=== PATIENT | male | born 1980 | race Caucasian/White ===

== ENCOUNTER 2019-03-03 11:16 | Inpatient (IN) | payer OTHER ==
[2019-03-03 11:34] VITALS: BMI 26.1
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
[2019-03-03] MEDS ORDERED: cloNIDine HCL 0.1 MG TABLET PO PRN (13:40)
[2019-03-03] MEDS ORDERED: BISMUTH SUBSALICYLATE 262 MG/15 ML BTL PO PRN (13:41)
[2019-03-03] MEDS ORDERED: MENTHOL/PHENOL 1 EACH UD MM PRN (13:41)
[2019-03-03] MEDS ORDERED: MAGNESIUM HYDROX 2400MG/30ML ORAL SUSPENSION 30 ML CUP PO PRN (13:41)
[2019-03-03] MEDS ORDERED: MAG HYDROX/AL HYDROX/SIMETH 30 ML UNIT-DOSE CUP PO PRN (13:41)
[2019-03-03] MEDS ORDERED: ACETAMINOPHEN 325 MG TABLET (FP) PO PRN ×2 (13:41)
--- NOTE | 2019-03-03 13:49 | PN ---
Teaching Attending Note Name of Resident: Iza Lara ATTENDING PHYSICIAN STATEMENT I saw and evaluated the patient. I reviewed the resident's note and discussed the case with the resident. I agree with the resident's findings and plan as documented. SUBJECTIVE: 39 yo with long h/o injection heroin use, now using 10 bags/day IV. Also using cocaine. Was in [facility]- given IM methadone for withdrawal Sx- and because of insurance reasons could not be admitted for detox and referred here. COWS score- 12 OBJECTIVE: Vital Signs - 24 hr 03/03/19 11:20 Temperature 97.2 F L Pulse Rate 64 Respiratory 18 Rate Blood Pressure 114/67 track don- not infected anxious alert and oriented ASSESSMENT AND PLAN: OUD- start methadone detox protocol clonidine and vistaril for anxiety
[2019-03-03] MEDS ORDERED: METHADONE HCL 10 MG TABLET (FOR DETOX USE ONLY) PO ONE (14:10)
[2019-03-03] MEDS: NICOTINE 14 MG/24 HOURS TOPICAL PATCH TD SCH (14:54)
[2019-03-03 16:42] LABS: ALBUMIN 3.7 g/dl (3.4-5.0); BILIRUBIN,TOTAL 0.3 mg/dL (0.2-1); CALCIUM 9.3 mg/dL (8.5-10.1); CREATININE 0.8 mg/dL (0.55-1.3); POTASSIUM 4.3 mmol/L (3.5-5.1); TOT PROT 7.5 g/dl (6.4-8.2)
[2019-03-03] MEDS: IBUPROFEN 400 MG TABLET (FP) PO PRN ×2 (16:50→22:06)
[2019-03-03] MEDS: hydrOXYzine PAMOATE 50 MG CAPSULE (FP) PO PRN ×2 (16:50→22:06)
[2019-03-03 16:56] LABS: HEMATOCRIT 40.1 % (35.4-49); HEMOGLOBIN 13.5 GM/dL (11.7-16.9); MCH 30.3 pg (25.7-33.7); MCHC 33.7 g/dl (32.0-35.9); MEAN PLT VOLUME 8.9 fl (7.5-11.1); PLATELET COUNT 316 K/MM3 (134-434); RBC 4.45 M/mm3 (4.00-5.60); RDW 13.3 % (11.9-15.9); WHITE BLOOD COUNT 5.3 K/mm3 (4.0-10.0)
[2019-03-03] MEDS: THIAMINE HCL 100 MG TABLET (FP) PO SCH (22:06)
[2019-03-03] MEDS: MELATONIN 5 MG TABLETS PO PRN (22:07)
[2019-03-04] MEDS ORDERED: METHADONE HCL 10 MG TABLET (FOR DETOX USE ONLY) ONE (08:47)
[2019-03-04] MEDS ORDERED: METHADONE HCL 5 MG TABLET (FOR DETOX USE ONLY) ONE (08:48)
[2019-03-04] MEDS ORDERED: METHADONE (DETOX) 20 MG, METHADONE (DETOX) 5 MG PO ONE (10:00)
--- NOTE | 2019-03-04 10:01 | PN ---
S COWS - Scale Resting Pulse: 0= [place] 80 or Below Sweatin= Chills/Flushing Restless Observation: 0= Sits Still Pupil Size: 1= Pupils >than Normal Bone or Joint Aches: 1= Mild Discomfort Runny Nose/ Eye Tearin= None GI Upset > 30mins: 0= None Tremor Observation of Outstretched Hands: 2= Slight Tremor Visible Yawning Observation: 1= 1-2x During Session Anxiety or Irritability: 2=Irritable/Anxious Goose Flesh Skin: 3=Piloerection COWS Score: 11 S Progress Note (SOAP) Subjective: 39 years old male admitted on 03/03/19 for acute opiate withdrawal sx management had methadone today feeling better discuss medication assisted treatment program Objective: 03/04/19 10:01 Vital Signs Temperature 96.4 F L 03/04/19 09:22 Pulse Rate 64 03/04/19 09:22 Respiratory Rate 18 03/04/19 09:22 Blood Pressure 120/70 03/04/19 09:22 O2 Sat by Pulse Oximetry (%) Laboratory Last Values WBC 5.3 K/mm3 (4.0-10.0) 03/03/19 13:45 RBC 4.45 M/mm3 (4.00-5.60) 03/03/19 13:45 Hgb 13.5 GM/dL (11.7-16.9) 03/03/19 13:45 Hct 40.1 % (35.4-49) 03/03/19 13:45 MCV 90.0 fl (80-96) 03/03/19 13:45 MCH 30.3 pg (25.7-33.7) 03/03/19 13:45 MCHC 33.7 g/dl (32.0-35.9) 03/03/19 13:45 RDW 13.3 % (11.9-15.9) 03/03/19 13:45 Plt Count 316 K/MM3 (134-434) 03/03/19 13:45 MPV 8.9 fl (7.5-11.1) 03/03/19 13:45 Sodium 140 mmol/L (136-145) 03/03/19 13:45 Potassium 4.3 mmol/L (3.5-5.1) 03/03/19 13:45 Chloride 106 mmol/L (98-107) 03/03/19 13:45 Carbon Dioxide 27 mmol/L (21-32) 03/03/19 13:45 Anion Gap 8 MMOL/L (8-16) 03/03/19 13:45 BUN 13.0 mg/dL (7-18) 03/03/19 13:45 Creatinine 0.8 mg/dL (0.55-1.3) 03/03/19 13:45 Est GFR (CKD-EPI)AfAm 131.34 03/03/19 13:45 Est GFR (CKD-EPI)NonAf 113.32 03/03/19 13:45 Random Glucose 114 mg/dL (74-106) H 03/03/19 13:45 Calcium 9.3 mg/dL (8.5-10.1) 03/03/19 13:45 Total Bilirubin 0.3 mg/dL (0.2-1) 03/03/19 13:45 AST 13 U/L (15-37) L 03/03/19 13:45 ALT 17 U/L (13-61) 03/03/19 13:45 Alkaline Phosphatase 78 U/L (45-117) 03/03/19 13:45 Total Protein 7.5 g/dl (6.4-8.2) 03/03/19 13:45 Albumin 3.7 g/dl (3.4-5.0) 03/03/19 13:45 lab noted Assessment: 03/04/19 10:01 opiate withdrawal sx Plan: continue opiate detox
[2019-03-04] MEDS: NICOTINE 14 MG/24 HOURS TOPICAL PATCH TD SCH (10:44)
[2019-03-04] MEDS: PRENATAL VITAMINS W/ FOLIC ACID TABLET (FP) PO SCH (10:46)
[2019-03-04] MEDS: METHOCARBAMOL 500 MG TABLET PO PRN (13:16)
[2019-03-04] MEDS: hydrOXYzine PAMOATE 50 MG CAPSULE (FP) PO PRN (22:08)
[2019-03-04] MEDS: THIAMINE HCL 100 MG TABLET (FP) PO SCH (22:08)
[2019-03-04] MEDS: MELATONIN 5 MG TABLETS PO PRN (22:09)
[2019-03-04] MEDS: IBUPROFEN 400 MG TABLET (FP) PO PRN (22:09)
[2019-03-05] MEDS: hydrOXYzine PAMOATE 50 MG CAPSULE (FP) PO PRN (05:11)
[2019-03-05] MEDS: METHOCARBAMOL 500 MG TABLET PO PRN (05:11)
--- NOTE | 2019-03-05 09:27 | PN ---
BHS COWS - Scale Resting Pulse: 0= [place] 80 or Below Sweatin= Chills/Flushing Restless Observation: 0= Sits Still Pupil Size: 1= Pupils >than Normal Bone or Joint Aches: 1= Mild Discomfort Runny Nose/ Eye Tearin= Nasal Congestion GI Upset > 30mins: 1= Stomach Cramp Tremor Observation of Outstretched Hands: 1= Tremor [place], Not Seen Yawning Observation: 1= 1-2x During Session Anxiety or Irritability: 1=Feels Anxious/Irritable Goose Flesh Skin: 0=Smooth Skin COWS Score: 8 BHS Progress Note (SOAP) Subjective: 39 years old male doing well with methadone detox regimen ambulating on hallway social with peers good personal hygiene Objective: 03/05/19 09:26 Vital Signs Temperature 97 F L 03/05/19 06:06 Pulse Rate 55 L 03/05/19 06:06 Respiratory Rate 18 03/05/19 06:22 Blood Pressure 110/50 L 03/05/19 06:06 O2 Sat by Pulse Oximetry (%) Laboratory Last Values WBC 5.3 K/mm3 (4.0-10.0) 03/03/19 13:45 RBC 4.45 M/mm3 (4.00-5.60) 03/03/19 13:45 Hgb 13.5 GM/dL (11.7-16.9) 03/03/19 13:45 Hct 40.1 % (35.4-49) 03/03/19 13:45 MCV 90.0 fl (80-96) 03/03/19 13:45 MCH 30.3 pg (25.7-33.7) 03/03/19 13:45 MCHC 33.7 g/dl (32.0-35.9) 03/03/19 13:45 RDW 13.3 % (11.9-15.9) 03/03/19 13:45 Plt Count 316 K/MM3 (134-434) 03/03/19 13:45 MPV 8.9 fl (7.5-11.1) 03/03/19 13:45 Sodium 140 mmol/L (136-145) 03/03/19 13:45 Potassium 4.3 mmol/L (3.5-5.1) 03/03/19 13:45 Chloride 106 mmol/L (98-107) 03/03/19 13:45 Carbon Dioxide 27 mmol/L (21-32) 03/03/19 13:45 Anion Gap 8 MMOL/L (8-16) 03/03/19 13:45 BUN 13.0 mg/dL (7-18) 03/03/19 13:45 Creatinine 0.8 mg/dL (0.55-1.3) 03/03/19 13:45 Est GFR (CKD-EPI)AfAm 131.34 03/03/19 13:45 Est GFR (CKD-EPI)NonAf 113.32 03/03/19 13:45 Random Glucose 114 mg/dL (74-106) H 03/03/19 13:45 Calcium 9.3 mg/dL (8.5-10.1) 03/03/19 13:45 Total Bilirubin 0.3 mg/dL (0.2-1) 03/03/19 13:45 AST 13 U/L (15-37) L 03/03/19 13:45 ALT 17 U/L (13-61) 03/03/19 13:45 Alkaline Phosphatase 78 U/L (45-117) 03/03/19 13:45 Total Protein 7.5 g/dl (6.4-8.2) 03/03/19 13:45 Albumin 3.7 g/dl (3.4-5.0) 03/03/19 13:45 lab noted Assessment: 03/05/19 09:26 opiate withdrawal sx Plan: continue opiate detox discuss medication assisted treatment program
[2019-03-05] MEDS ORDERED: METHADONE HCL 10 MG TABLET (FOR DETOX USE ONLY) PO ONE (10:00)
[2019-03-05] MEDS: NICOTINE 14 MG/24 HOURS TOPICAL PATCH TD SCH (10:25)
[2019-03-05] MEDS: PRENATAL VITAMINS W/ FOLIC ACID TABLET (FP) PO SCH (10:25)
[2019-03-05 13:27] VITALS: BP 118/70; PULSE 65; TEMP 98.2
--- NOTE | 2019-03-05 15:28 | DS ---
[facility] Detox Discharge Summary Admission Date: 03/03/19 Discharge Date: 03/05/19 - History Present History: Opioid Dependence Additional Comments: 39 years old male admitted on 03/03/19 for opiate withdrawal sx management insists to leave the detox report feeling better after lunch and nap alert oriented x 3 denies dizziness no shortness of breath speech clearly steady gait strong recommend the patient seeking medication assisted treatment program Pertinent Past History: patient is willing to consider return to [facility] - Physical Exam Results Vital Signs: Vital Signs Temperature 98.2 F 03/05/19 13:26 Pulse Rate 65 03/05/19 13:26 Respiratory Rate 18 03/05/19 13:26 Blood Pressure 118/70 03/05/19 13:26 O2 Sat by Pulse Oximetry (%) Pertinent Admission Physical Exam Findings: opiate withdrawal sx Laboratory Last Values WBC 5.3 K/mm3 (4.0-10.0) 03/03/19 13:45 RBC 4.45 M/mm3 (4.00-5.60) 03/03/19 13:45 Hgb 13.5 GM/dL (11.7-16.9) 03/03/19 13:45 Hct 40.1 % (35.4-49) 03/03/19 13:45 MCV 90.0 fl (80-96) 03/03/19 13:45 MCH 30.3 pg (25.7-33.7) 03/03/19 13:45 MCHC 33.7 g/dl (32.0-35.9) 03/03/19 13:45 RDW 13.3 % (11.9-15.9) 03/03/19 13:45 Plt Count 316 K/MM3 (134-434) 03/03/19 13:45 MPV 8.9 fl (7.5-11.1) 03/03/19 13:45 Sodium 140 mmol/L (136-145) 03/03/19 13:45 Potassium 4.3 mmol/L (3.5-5.1) 03/03/19 13:45 Chloride 106 mmol/L (98-107) 03/03/19 13:45 Carbon Dioxide 27 mmol/L (21-32) 03/03/19 13:45 Anion Gap 8 MMOL/L (8-16) 03/03/19 13:45 BUN 13.0 mg/dL (7-18) 03/03/19 13:45 Creatinine 0.8 mg/dL (0.55-1.3) 03/03/19 13:45 Est GFR (CKD-EPI)AfAm 131.34 03/03/19 13:45 Est GFR (CKD-EPI)NonAf 113.32 03/03/19 13:45 Random Glucose 114 mg/dL (74-106) H 03/03/19 13:45 Calcium 9.3 mg/dL (8.5-10.1) 03/03/19 13:45 Total Bilirubin 0.3 mg/dL (0.2-1) 03/03/19 13:45 AST 13 U/L (15-37) L 03/03/19 13:45 ALT 17 U/L (13-61) 03/03/19 13:45 Alkaline Phosphatase 78 U/L (45-117) 03/03/19 13:45 Total Protein 7.5 g/dl (6.4-8.2) 03/03/19 13:45 Albumin 3.7 g/dl (3.4-5.0) 03/03/19 13:45 RPR Titer Nonreactive (NONREACTIVE) 03/04/19 10:00 lab noted - Treatment Hospital Course: Detox Protocol Followed, Responded well Patient has Accepted a Rehab Referral to: [facility] - Medication Discharge Medications: Ambulatory Orders NK [No Known Home Medication] 03/03/19 - Diagnosis (1) Opioid dependence with withdrawal Current Visit: Yes Status: Acute (2) Nicotine use disorder Current Visit: Yes Status: Acute - AMA Did Patient Leave Against Medical Advice: Yes
[2019-03-06] MEDS ORDERED: METHADONE (DETOX) 10 MG, METHADONE (DETOX) 5 MG PO ONE (10:00)
[2019-03-07] MEDS ORDERED: METHADONE HCL 10 MG TABLET (FOR DETOX USE ONLY) PO ONE (10:00)
[2019-03-08] MEDS ORDERED: METHADONE HCL 5 MG TABLET (FOR DETOX USE ONLY) PO ONE (06:00)
== END 2019-03-05 15:08 | disposition left against medical advice (07) | DRG 770 ==
LOC: YASAS 11:16 → Y3N 14:03
PROVIDERS: ADMIT Surgery; ATTEND Surgery
PROC: HZ2ZZZZ Detoxification Services for Substance Abuse Treatment (ICD-10-PCS; principal; 2019-03-03)
DX: F11.23 Opioid dependence with withdrawal (principal); F14.20 Cocaine dependence, uncomplicated; F17.200 Nicotine dependence, unspecified, uncomplicated; F41.9 Anxiety disorder, unspecified; Z87.828 Personal history of other (healed) physical injury and trauma; Z59.0 Homelessness
CPT/HCPCS: 36415; 80053; 85027; 86480; 86593; J0735

== ENCOUNTER 2019-06-14 08:31 | Inpatient (IN) | payer OTHER ==
[2019-06-14 09:11] VITALS: BMI 30.2
--- NOTE | 2019-06-14 11:15 | HP ---
COWS - Scale Resting Pulse: 0= [place] 80 or Below Sweatin= Chills/Flushing Restless Observation: 1= Difficult to Sit Still Pupil Size: 1= Pupils >than Normal Bone or Joint Aches: 2= Severe Diffuse Aches Runny Nose/ Eye Tearin= Runny Nose/Eyes GI Upset > 30mins: 2= Nausea/Diarrhea Tremor Observation: 1= Tremor [place], Not Seen Yawning Observation: 1= 1-2x During Session Anxiety or Irritability: 2=Irritable/Anxious Goose Flesh Skin: 0=Smooth Skin COWS Score: 13 CIWA Score - Admission Criteria OASAS Guidelines: Admission for Medically Managed Detox: Requires at least one of the followin. CIWA greater than 12 2. Seizures within the past 24 hours 3. Delirium tremens within the past 24 hours 4. Hallucinations within the past 24 hours 5. Acute intervention needed for co occurring medical disorder 6. Acute intervention needed for co occurring psychiatric disorder 7. Severe withdrawal that cannot be handled at a lower level of care (continued vomiting, continued diarrhea, abnormal vital signs) requiring intravenous medication and/or fluids 8. Admitting History and Physical - Smoking History Smoking history: Current every day smoker Have you smoked in the past 12 months: Yes Aproximately how many cigarettes per day: 10 - Alcohol/Substance Use Hx Alcohol Use: No Admission ROS S - HPI Chief Complaint: I need help to stop using heroin,cocaine,methadone,alcohol abused Allergies/Adverse Reactions: Allergies Allergy/AdvReac Type Severity Reaction Status Date / Time Penicillins Allergy Mild Verified 06/14/19 09:08 History of Present Illness: this 31 years old male with heroin,cocaine,street methadone,alcohol abused, seeking detox,withdrawal symptom, denied seizure syncope iv heroin and cocaine nicotine dependence 1/2 pack/day multiple admissions in detox,last detox 03/03/19 to 03/05/19 longest period of sobriety 5 years 2003 to 2009 unemployed homeless plan for rehab after detox Exam Limitations: No Limitations - Ebola screening Have you traveled outside of the country in the last 21 days: No ([place]) Have you had contact with anyone from an Ebola affected area: No Do you have a fever: No - Review of Systems EENT: reports: Cataracts, Tearing, Nose Congestion Respiratory: reports: No Symptoms reported Cardiac: reports: No Symptoms Reported GI: reports: Diarrhea, Nausea, Vomiting : reports: No Symptoms Reported Musculoskeletal: reports: Back Pain, Joint Pain, Muscle Pain Integumentary: reports: Dryness Neuro: reports: Headache, Tremors Endocrine: reports: No Symptoms Reported Hematology: reports: No Symptoms Reported Psychiatric: reports: No Sypmtoms Reported, Judgement Intact, Mood/Affect Appropiate, Orientated x3 Other Systems: Reviewed and Negative Patient History - Patient Medical History Hx Anemia: No Hx Asthma: No Hx Chronic Obstructive Pulmonary Disease (COPD): No Hx Cancer: No Hx Cardiac Disorders: No Hx Congestive Heart Failure: No Hx Hypertension: No Hx Hypercholesterolemia: No Hx Pacemaker: No HX Cerebrovascular Accident: No Hx Seizures: No Hx Dementia: No Hx Diabetes: No Hx Gastrointestinal Disorders: No Hx Liver Disease: No Hx Genitourinary Disorders: No Hx Sexually Transmitted Disorders: No Hx Renal Disease (ESRD): No Hx Thyroid Disease: No Hx Human Immunodeficiency Virus (HIV): No (last 12/21 negative) Hx Hepatitis C: No Hx Depression: Yes (no med) Hx Suicide Attempt: No Hx Bipolar Disorder: No Hx Schizophrenia: No Other Medical History: no suicidal,no homicidal,carpal tunnel and arthritis both hands,shoulder - Patient Surgical History Past Surgical History: No Hx Neurologic Surgery: No Hx Cataract Extraction: No Hx Cardiac Surgery: No Hx Lung Surgery: No Hx Breast Surgery: No Hx Breast Biopsy: No Hx Abdominal Surgery: No Hx Appendectomy: No Hx Cholecystectomy: No Hx Genitourinary Surgery: No Hx Section: No Hx Orthopedic Surgery: Yes (arthroscopic surgery of right elbow) Anesthesia Reaction: No - PPD History Documented Results: Negative w/o proof Implanted On Prior [facility] Admission?: No PPD to be Administered?: Yes - Smoking Cessation Smoking history: Current every day smoker Have you smoked in the past 12 months: Yes Aproximately how many cigarettes per day: 10 Hx Chewing Tobacco Use: No Initiated information on smoking cessation: Yes 'Breaking Loose' booklet given: 06/14/19 - Substance & Tx. History Hx Alcohol Use: No Hx Substance Use: Yes Substance Use Type: Cocaine, Heroin Hx Substance Use Treatment: Yes ([facility] 03/03/19 to 03/05/19) - Substances abused Heroin Substance route: Injection Frequency: Daily Amount used: 5 bags Age of first use: 32 Date of last use: 11/08/19 Cocaine Substance route: Injection Frequency: Daily Amount used: 8 bags Age of first use: 32 Date of last use: 06/13/19 Non-Rx Methadone Substance route: Oral Frequency: Daily Amount used: 40 mgs Age of first use: 32 Date of last use: 06/13/19 Alcohol Substance route: Oral Frequency: 1-3 times last 30 days Amount used: 1 pint of liquor/6 of 12 ozs of beer Age of first use: 16 Date of last use: 05/08/19 Admission Physical Exam [facility] - Vital Signs Vital Signs: Vital Signs - 24 hr 06/14/19 06/14/19 09:02 09:17 Temperature 98.5 F 98.5 F Pulse Rate 69 69 Respiratory 18 18 Rate Blood Pressure 122/62 122/62 - Physical General Appearance: Yes: Moderate Distress, Tremorous, Irritable, Sweating, Anxious HEENTM: Yes: Normal ENT Inspection, [place], Pharynx Normal Respiratory: Yes: Lungs Clear, Normal Breath Sounds, No Respiratory Distress Neck: Yes: Within Normal Limits, Supple, Trachea in good position Breast: Yes: Within Normal Limits Cardiology: Yes: Within Normal Limits, Regular Rhythm, Regular Rate, S1, S2 Abdominal: Yes: Normal Bowel Sounds, Non Tender, Flat, Soft Genitourinary: Yes: Within Normal Limits Back: Yes: Muscle Spasm Musculoskeletal: Yes: Back pain, Muscle Pain Extremities: Yes: Within Normal Limits Neurological: Yes: brim edge trimmer II-XII NML intact, Motor Strength 5/5 Integumentary: Yes: Dry, Track Hooks Lymphatic: Yes: Within Normal Limits - Diagnostic (1) Opioid dependence with withdrawal Current Visit: No Status: Acute (2) Nicotine use disorder Current Visit: No Status: Acute (3) Cocaine use disorder Current Visit: No Status: Chronic (4) IVDU (intravenous drug user) Current Visit: No Status: Chronic Cleared for Admission [facility] - Detox or Rehab [facility] Level of Care: Medically Managed Detox Regimen/Protocol: Methadone Breathalyzer - Breathalyzer Breathalyzer: 0 Urine Drug Screen - Test Device Lot number: [id number] Expiration date: 03/04/21 - Control Is test valid?: Yes - Results Drug screen NEGATIVE: No Urine drug screen results: LAVERN-Cocaine, MTD-Methadone Inpatient Rehab Admission - Rehab Decision to Admit Inpatient rehab admission?: No
[2019-06-14] MEDS ORDERED: BISMUTH SUBSALICYLATE 524 MG/30 ML UD PO PRN (11:32)
[2019-06-14] MEDS ORDERED: METHADONE HCL 10 MG TABLET (FOR DETOX USE ONLY) PO ONE (11:32)
[2019-06-14] MEDS ORDERED: MAGNESIUM HYDROX 2400MG/30ML ORAL SUSPENSION 30 ML CUP PO PRN (11:32)
[2019-06-14] MEDS ORDERED: cloNIDine HCL 0.1 MG TABLET PO PRN (11:32)
[2019-06-14] MEDS ORDERED: MENTHOL/PHENOL 1 EACH UD MM PRN (11:32)
[2019-06-14] MEDS ORDERED: MAG HYDROX/AL HYDROX/SIMETH 30 ML UNIT-DOSE CUP PO PRN (11:32)
[2019-06-14] MEDS ORDERED: MAGNESIUM CITRATE 300 ML BOTTLE PO PRN (11:32)
[2019-06-14] MEDS ORDERED: NICOTINE POLACRILEX 2 MG GUM BUC PRN (11:32)
[2019-06-14] MEDS: NICOTINE 21 MG/24 HOURS TOPICAL PATCH TD SCH (13:27)
[2019-06-14] MEDS: THIAMINE HCL 100 MG TABLET (FP) PO SCH (22:19)
[2019-06-14] MEDS: diazePAM 5 MG TABLET PO PRN (22:19)
[2019-06-14] MEDS: MELATONIN 5 MG TABLETS PO PRN (22:19)
[2019-06-15] MEDS: hydrOXYzine PAMOATE 25 MG CAPSULE (FP) PO PRN (03:00)
[2019-06-15] MEDS ORDERED: METHADONE HCL 10 MG TABLET (FOR DETOX USE ONLY) ONE (09:35)
[2019-06-15] MEDS ORDERED: METHADONE HCL 5 MG TABLET (FOR DETOX USE ONLY) ONE (09:36)
[2019-06-15 09:39] LABS: HEMATOCRIT 38.2 % (35.4-49); HEMOGLOBIN 12.8 GM/dL (11.7-16.9); MCH 29.7 pg (25.7-33.7); MCHC 33.5 g/dl (32.0-35.9); MEAN CELL VOLUME 88.5 fl (80-96); MEAN PLT VOLUME 8.8 fl (7.5-11.1); PLATELET COUNT 197 K/MM3 (134-434); RBC 4.32 M/mm3 (4.00-5.60); WHITE BLOOD COUNT 4.3 K/mm3 (4.0-10.0)
[2019-06-15 09:55] LABS: ALBUMIN 3.5 g/dl (3.4-5.0); BILIRUBIN,TOTAL 0.4 mg/dL (0.2-1); BLOOD UREA NITROGEN 16.1 mg/dL (7-18); CREATININE 0.8 mg/dL (0.55-1.3); POTASSIUM 4.1 mmol/L (3.5-5.1); TOT PROT 6.1 g/dl (6.4-8.2)
[2019-06-15] MEDS ORDERED: METHADONE (DETOX) 20 MG, METHADONE (DETOX) 5 MG PO ONE (10:00)
--- NOTE | 2019-06-15 10:15 | PN ---
BHS COWS - Scale Resting Pulse: 0= [place] 80 or Below Sweatin= Chills/Flushing Restless Observation: 0= Sits Still Pupil Size: 1= Pupils >than Normal Bone or Joint Aches: 2= Severe Diffuse Aches Runny Nose/ Eye Tearin= Nasal Congestion GI Upset > 30mins: 1= Stomach Cramp Tremor Observation of Outstretched Hands: 2= Slight Tremor Visible Yawning Observation: 1= 1-2x During Session Anxiety or Irritability: 0= None Goose Flesh Skin: 3=Piloerection COWS Score: 12 BHS Progress Note (SOAP) Subjective: 39 years old male admitted on 06/14/19 for opiate withdrawal sx management treated with methadone detox regimen patient tolerated well sitting on bed eating breakfast patient tolerated food and fluid well Objective: 06/15/19 10:15 Vital Signs Temperature 97.9 F 06/15/19 09:22 Pulse Rate 71 06/15/19 09:22 Respiratory Rate 18 06/15/19 09:22 Blood Pressure 110/67 06/15/19 09:22 O2 Sat by Pulse Oximetry (%) Laboratory Last Values WBC 4.3 K/mm3 (4.0-10.0) 06/15/19 07:50 RBC 4.32 M/mm3 (4.00-5.60) 06/15/19 07:50 Hgb 12.8 GM/dL (11.7-16.9) 06/15/19 07:50 Hct 38.2 % (35.4-49) 06/15/19 07:50 MCV 88.5 fl (80-96) 06/15/19 07:50 MCH 29.7 pg (25.7-33.7) 06/15/19 07:50 MCHC 33.5 g/dl (32.0-35.9) 06/15/19 07:50 RDW 14.0 % (11.9-15.9) 06/15/19 07:50 Plt Count 197 K/MM3 (134-434) D 06/15/19 07:50 MPV 8.8 fl (7.5-11.1) 06/15/19 07:50 Sodium 137 mmol/L (136-145) 06/15/19 07:50 Potassium 4.1 mmol/L (3.5-5.1) 06/15/19 07:50 Chloride 101 mmol/L (98-107) 06/15/19 07:50 Carbon Dioxide 32 mmol/L (21-32) 06/15/19 07:50 Anion Gap 5 MMOL/L (8-16) L 06/15/19 07:50 BUN 16.1 mg/dL (7-18) 06/15/19 07:50 Creatinine 0.8 mg/dL (0.55-1.3) 06/15/19 07:50 Est GFR (CKD-EPI)AfAm 131.34 06/15/19 07:50 Est GFR (CKD-EPI)NonAf 113.32 06/15/19 07:50 Random Glucose 95 mg/dL (74-106) 06/15/19 07:50 Calcium 9.0 mg/dL (8.5-10.1) 06/15/19 07:50 Total Bilirubin 0.4 mg/dL (0.2-1) 06/15/19 07:50 AST 23 U/L (15-37) 06/15/19 07:50 ALT 27 U/L (13-61) 06/15/19 07:50 Alkaline Phosphatase 49 U/L (45-117) 06/15/19 07:50 Total Protein 6.1 g/dl (6.4-8.2) L 06/15/19 07:50 Albumin 3.5 g/dl (3.4-5.0) 06/15/19 07:50 lab noted Assessment: 06/15/19 10:15 opiate withdrawal sx Plan: continue methadone detox regimen
[2019-06-15] MEDS: PRENATAL VITAMINS W/ FOLIC ACID TABLET (FP) PO SCH (10:55)
[2019-06-15] MEDS: NICOTINE 21 MG/24 HOURS TOPICAL PATCH TD SCH (10:56)
[2019-06-15 13:41] LABS: URINE APPEARANCE CLEAR; URINE BILIRUBIN NEGATIVE (NEGATIVE); URINE COLOR YELLOW; URINE GLUCOSE (UA) NEGATIVE (NEGATIVE); URINE KETONE NEGATIVE (NEGATIVE); URINE LEUK ESTERASE NEGATIVE (NEGATIVE); URINE NITRITE NEGATIVE (NEGATIVE); URINE PROTEIN NEGATIVE (NEGATIVE); URINE UROBILINOGEN 0.2 mg/dL (0.2-1.0)
[2019-06-15] MEDS: THIAMINE HCL 100 MG TABLET (FP) PO SCH (22:16)
[2019-06-15] MEDS: diazePAM 5 MG TABLET PO PRN (22:16)
[2019-06-16] MEDS: diazePAM 5 MG TABLET PO PRN ×2 (02:24→10:18)
[2019-06-16] MEDS: hydrOXYzine PAMOATE 25 MG CAPSULE (FP) PO PRN (02:24)
[2019-06-16] MEDS: METHOCARBAMOL 500 MG TABLET PO PRN (05:54)
[2019-06-16] MEDS: ACETAMINOPHEN 325 MG TABLET (FP) PO PRN ×2 (05:55→15:45)
[2019-06-16] MEDS ORDERED: METHADONE HCL 10 MG TABLET (FOR DETOX USE ONLY) PO ONE (10:00)
[2019-06-16] MEDS: NICOTINE 21 MG/24 HOURS TOPICAL PATCH TD SCH (10:18)
[2019-06-16] MEDS: PRENATAL VITAMINS W/ FOLIC ACID TABLET (FP) PO SCH (10:18)
--- NOTE | 2019-06-16 14:04 | PN ---
BHS COWS - Scale Resting Pulse: 0= [place] 80 or Below Sweatin= Chills/Flushing Restless Observation: 0= Sits Still Pupil Size: 1= Pupils >than Normal Bone or Joint Aches: 2= Severe Diffuse Aches Runny Nose/ Eye Tearin= Nasal Congestion GI Upset > 30mins: 1= Stomach Cramp Tremor Observation of Outstretched Hands: 2= Slight Tremor Visible Yawning Observation: 1= 1-2x During Session Anxiety or Irritability: 2=Irritable/Anxious Goose Flesh Skin: 0=Smooth Skin COWS Score: 11 BHS Progress Note (SOAP) Subjective: 39 years old male admitted on 06/14/19 for opiate withdrawal sx management treated with methadone detox regimen feeling better sleep through out the night less tremor mild body ache Objective: 06/16/19 14:02 Laboratory Last Values WBC 4.3 K/mm3 (4.0-10.0) 06/15/19 07:50 RBC 4.32 M/mm3 (4.00-5.60) 06/15/19 07:50 Hgb 12.8 GM/dL (11.7-16.9) 06/15/19 07:50 Hct 38.2 % (35.4-49) 06/15/19 07:50 MCV 88.5 fl (80-96) 06/15/19 07:50 MCH 29.7 pg (25.7-33.7) 06/15/19 07:50 MCHC 33.5 g/dl (32.0-35.9) 06/15/19 07:50 RDW 14.0 % (11.9-15.9) 06/15/19 07:50 Plt Count 197 K/MM3 (134-434) D 06/15/19 07:50 MPV 8.8 fl (7.5-11.1) 06/15/19 07:50 Sodium 137 mmol/L (136-145) 06/15/19 07:50 Potassium 4.1 mmol/L (3.5-5.1) 06/15/19 07:50 Chloride 101 mmol/L (98-107) 06/15/19 07:50 Carbon Dioxide 32 mmol/L (21-32) 06/15/19 07:50 Anion Gap 5 MMOL/L (8-16) L 06/15/19 07:50 BUN 16.1 mg/dL (7-18) 06/15/19 07:50 Creatinine 0.8 mg/dL (0.55-1.3) 06/15/19 07:50 Est GFR (CKD-EPI)AfAm 131.34 06/15/19 07:50 Est GFR (CKD-EPI)NonAf 113.32 06/15/19 07:50 Random Glucose 95 mg/dL (74-106) 06/15/19 07:50 Calcium 9.0 mg/dL (8.5-10.1) 06/15/19 07:50 Total Bilirubin 0.4 mg/dL (0.2-1) 06/15/19 07:50 AST 23 U/L (15-37) 06/15/19 07:50 ALT 27 U/L (13-61) 06/15/19 07:50 Alkaline Phosphatase 49 U/L (45-117) 06/15/19 07:50 Total Protein 6.1 g/dl (6.4-8.2) L 06/15/19 07:50 Albumin 3.5 g/dl (3.4-5.0) 06/15/19 07:50 Urine Color Yellow 06/15/19 08:40 Urine Appearance Clear 06/15/19 08:40 Urine pH 5.0 (5.0-8.0) 06/15/19 08:40 Ur Specific [place] 1.018 (1.010-1.035) 06/15/19 08:40 Urine Protein Negative (NEGATIVE) 06/15/19 08:40 Urine Glucose (UA) Negative (NEGATIVE) 06/15/19 08:40 Urine Ketones Negative (NEGATIVE) 06/15/19 08:40 Urine Blood Negative (NEGATIVE) 06/15/19 08:40 Urine Nitrite Negative (NEGATIVE) 06/15/19 08:40 Urine Bilirubin Negative (NEGATIVE) 06/15/19 08:40 Urine Urobilinogen 0.2 mg/dL (0.2-1.0) 06/15/19 08:40 Ur Leukocyte Esterase Negative (NEGATIVE) 06/15/19 08:40 RPR Titer Nonreactive (NONREACTIVE) 06/15/19 07:50 lab noted Assessment: 06/16/19 14:03 opioid withdrawal sx Plan: continue methadone detox regimen
--- NOTE | 2019-06-16 16:03 | PN ---
[facility] Progress Note Note: 39 years old male developed fever on and off since admission on 06/14/19 for opiate withdrawal sx management while treating with methadone patient became disorganized with disoriented slurred speech painful urination fluctuating levels of consciousness and fever 102.6 1:1 close observation information provided to ER Dr. Hinds rule out encephalopathy unknown origin disposition: may return to [facility] continue detox or opiate rehab admission
[2019-06-16] MEDS: THIAMINE HCL 100 MG TABLET (FP) PO SCH (22:37)
[2019-06-16] MEDS: IBUPROFEN 400 MG TABLET (FP) PO PRN (23:08)
[2019-06-16] MEDS: MELATONIN 5 MG TABLETS PO PRN (23:09)
[2019-06-17] MEDS: diazePAM 5 MG TABLET PO PRN (00:38)
[2019-06-17] MEDS ORDERED: METHADONE HCL 10 MG TABLET (FOR DETOX USE ONLY) ONE (09:25)
[2019-06-17] MEDS ORDERED: METHADONE HCL 5 MG TABLET (FOR DETOX USE ONLY) ONE (09:26)
[2019-06-17] MEDS ORDERED: METHADONE (DETOX) 10 MG, METHADONE (DETOX) 5 MG PO ONE (10:00)
[2019-06-17] MEDS ORDERED: diazePAM 5 MG TABLET PO PRN (10:37)
--- NOTE | 2019-06-17 10:37 | PN ---
BHS COWS - Scale Resting Pulse: 1= [place] 81-100 Sweatin= Chills/Flushing Restless Observation: 0= Sits Still Pupil Size: 0= Normal to Room Light Bone or Joint Aches: 1= Mild Discomfort Runny Nose/ Eye Tearin= Nasal Congestion GI Upset > 30mins: 1= Stomach Cramp Tremor Observation of Outstretched Hands: 1= Tremor [place], Not Seen Yawning Observation: 1= 1-2x During Session Anxiety or Irritability: 1=Feels Anxious/Irritable Goose Flesh Skin: 0=Smooth Skin COWS Score: 8 BHS Progress Note (SOAP) Subjective: 39 years old male admitted on 06/14/19 for opiate withdrawal sx management treated with methadone detox regimen discuss medication assisted treatment program reduce valium prn from 10 mg to 5 mg discuss alter mentation due to overdose that the patient became alert after narcan patient agrees to lease picker narcan from pharmacy Objective: 06/17/19 10:41 Vital Signs Temperature 97.4 F L 06/17/19 09:18 Pulse Rate 81 06/17/19 09:18 Respiratory Rate 18 06/17/19 09:18 Blood Pressure 130/76 06/17/19 09:18 O2 Sat by Pulse Oximetry (%) Laboratory Last Values WBC 4.3 K/mm3 (4.0-10.0) 06/15/19 07:50 RBC 4.32 M/mm3 (4.00-5.60) 06/15/19 07:50 Hgb 12.8 GM/dL (11.7-16.9) 06/15/19 07:50 Hct 38.2 % (35.4-49) 06/15/19 07:50 MCV 88.5 fl (80-96) 06/15/19 07:50 MCH 29.7 pg (25.7-33.7) 06/15/19 07:50 MCHC 33.5 g/dl (32.0-35.9) 06/15/19 07:50 RDW 14.0 % (11.9-15.9) 06/15/19 07:50 Plt Count 197 K/MM3 (134-434) D 06/15/19 07:50 MPV 8.8 fl (7.5-11.1) 06/15/19 07:50 Sodium 137 mmol/L (136-145) 06/15/19 07:50 Potassium 4.1 mmol/L (3.5-5.1) 06/15/19 07:50 Chloride 101 mmol/L (98-107) 06/15/19 07:50 Carbon Dioxide 32 mmol/L (21-32) 06/15/19 07:50 Anion Gap 5 MMOL/L (8-16) L 06/15/19 07:50 BUN 16.1 mg/dL (7-18) 06/15/19 07:50 Creatinine 0.8 mg/dL (0.55-1.3) 06/15/19 07:50 Est GFR (CKD-EPI)AfAm 131.34 06/15/19 07:50 Est GFR (CKD-EPI)NonAf 113.32 06/15/19 07:50 Random Glucose 95 mg/dL (74-106) 06/15/19 07:50 Calcium 9.0 mg/dL (8.5-10.1) 06/15/19 07:50 Total Bilirubin 0.4 mg/dL (0.2-1) 06/15/19 07:50 AST 23 U/L (15-37) 06/15/19 07:50 ALT 27 U/L (13-61) 06/15/19 07:50 Alkaline Phosphatase 49 U/L (45-117) 06/15/19 07:50 Total Protein 6.1 g/dl (6.4-8.2) L 06/15/19 07:50 Albumin 3.5 g/dl (3.4-5.0) 06/15/19 07:50 Urine Color Yellow 06/15/19 08:40 Urine Appearance Clear 06/15/19 08:40 Urine pH 5.0 (5.0-8.0) 06/15/19 08:40 Ur Specific [place] 1.018 (1.010-1.035) 06/15/19 08:40 Urine Protein Negative (NEGATIVE) 06/15/19 08:40 Urine Glucose (UA) Negative (NEGATIVE) 06/15/19 08:40 Urine Ketones Negative (NEGATIVE) 06/15/19 08:40 Urine Blood Negative (NEGATIVE) 06/15/19 08:40 Urine Nitrite Negative (NEGATIVE) 06/15/19 08:40 Urine Bilirubin Negative (NEGATIVE) 06/15/19 08:40 Urine Urobilinogen 0.2 mg/dL (0.2-1.0) 06/15/19 08:40 Ur Leukocyte Esterase Negative (NEGATIVE) 06/15/19 08:40 RPR Titer Nonreactive (NONREACTIVE) 06/15/19 07:50 lab noted Assessment: 06/17/19 10:43 opiate withdrawal sx Plan: continue methadone detox regimen
[2019-06-17] MEDS: PRENATAL VITAMINS W/ FOLIC ACID TABLET (FP) PO SCH (11:01)
[2019-06-17] MEDS: NICOTINE 21 MG/24 HOURS TOPICAL PATCH TD SCH (11:01)
[2019-06-17] MEDS ORDERED: TRIMETHOBENZAMIDE HCL 200MG/2ML INJ IM ONE (11:15)
[2019-06-17] MEDS: ACETAMINOPHEN 325 MG TABLET (FP) PO PRN ×2 (11:56→20:23)
[2019-06-17] MEDS: THIAMINE HCL 100 MG TABLET (FP) PO SCH (22:30)
[2019-06-17] MEDS: MELATONIN 5 MG TABLETS PO PRN (22:31)
--- NOTE | 2019-06-17 22:48 | PN ---
[facility] Progress Note Note: Patient complained of cough Vital Signs 06/17/19 06/18/19 06/18/19 23:30 00:30 03:30 Temperature 100.9 F H Pulse Rate Respiratory 18 18 Rate Blood Pressure 06/18/19 06:07 Temperature 103.4 F H Pulse Rate 119 H Respiratory 20 Rate Blood Pressure 128/59 L Action: Guaifenesin 10ml oral Q6H ordered
[2019-06-17] MEDS: guaiFENesin 200 MG/10 ML 10 ML UNIT-DOSE CUPS PO PRN (22:50)
[2019-06-18] MEDS: guaiFENesin 200 MG/10 ML 10 ML UNIT-DOSE CUPS PO PRN ×2 (06:42→16:52)
[2019-06-18] MEDS: METHOCARBAMOL 500 MG TABLET PO PRN ×2 (06:42→17:31)
[2019-06-18] MEDS: hydrOXYzine PAMOATE 25 MG CAPSULE (FP) PO PRN ×2 (06:42→17:31)
[2019-06-18] MEDS: ACETAMINOPHEN 325 MG TABLET (FP) PO PRN ×2 (06:45→16:52)
[2019-06-18] MEDS ORDERED: METHADONE HCL 10 MG TABLET (FOR DETOX USE ONLY) PO ONE (10:00)
[2019-06-18] MEDS: PRENATAL VITAMINS W/ FOLIC ACID TABLET (FP) PO SCH (10:20)
[2019-06-18] MEDS: NICOTINE 21 MG/24 HOURS TOPICAL PATCH TD SCH (10:21)
--- NOTE | 2019-06-18 14:52 | PN ---
BHS COWS - Scale Resting Pulse: 0= [place] 80 or Below Sweatin= Chills/Flushing Restless Observation: 0= Sits Still Pupil Size: 0= Normal to Room Light Bone or Joint Aches: 1= Mild Discomfort Runny Nose/ Eye Tearin= Nasal Congestion GI Upset > 30mins: 1= Stomach Cramp Tremor Observation of Outstretched Hands: 1= Tremor [place], Not Seen Yawning Observation: 1= 1-2x During Session Anxiety or Irritability: 1=Feels Anxious/Irritable Goose Flesh Skin: 0=Smooth Skin COWS Score: 7 BHS Progress Note (SOAP) Subjective: 39 years old male admitted on 06/14/19 for opiate withdrawal sx management treated with methadone detox regimen feeling better ate breakfast and lunch no trouble chewing swallowing tolerated food and fluid well discuss medication assisted treatment program Objective: 06/18/19 14:55 Vital Signs Temperature 96.2 F L 06/18/19 13:11 Pulse Rate 64 06/18/19 13:11 Respiratory Rate 18 06/18/19 13:11 Blood Pressure 111/69 06/18/19 13:11 O2 Sat by Pulse Oximetry (%) Laboratory Last Values WBC 4.3 K/mm3 (4.0-10.0) 06/15/19 07:50 RBC 4.32 M/mm3 (4.00-5.60) 06/15/19 07:50 Hgb 12.8 GM/dL (11.7-16.9) 06/15/19 07:50 Hct 38.2 % (35.4-49) 06/15/19 07:50 MCV 88.5 fl (80-96) 06/15/19 07:50 MCH 29.7 pg (25.7-33.7) 06/15/19 07:50 MCHC 33.5 g/dl (32.0-35.9) 06/15/19 07:50 RDW 14.0 % (11.9-15.9) 06/15/19 07:50 Plt Count 197 K/MM3 (134-434) D 06/15/19 07:50 MPV 8.8 fl (7.5-11.1) 06/15/19 07:50 Sodium 137 mmol/L (136-145) 06/15/19 07:50 Potassium 4.1 mmol/L (3.5-5.1) 06/15/19 07:50 Chloride 101 mmol/L (98-107) 06/15/19 07:50 Carbon Dioxide 32 mmol/L (21-32) 06/15/19 07:50 Anion Gap 5 MMOL/L (8-16) L 06/15/19 07:50 BUN 16.1 mg/dL (7-18) 06/15/19 07:50 Creatinine 0.8 mg/dL (0.55-1.3) 06/15/19 07:50 Est GFR (CKD-EPI)AfAm 131.34 06/15/19 07:50 Est GFR (CKD-EPI)NonAf 113.32 06/15/19 07:50 Random Glucose 95 mg/dL (74-106) 06/15/19 07:50 Calcium 9.0 mg/dL (8.5-10.1) 06/15/19 07:50 Total Bilirubin 0.4 mg/dL (0.2-1) 06/15/19 07:50 AST 23 U/L (15-37) 06/15/19 07:50 ALT 27 U/L (13-61) 06/15/19 07:50 Alkaline Phosphatase 49 U/L (45-117) 06/15/19 07:50 Ammonia 27.60 umol/L (11-32) 06/17/19 11:15 Total Protein 6.1 g/dl (6.4-8.2) L 06/15/19 07:50 Albumin 3.5 g/dl (3.4-5.0) 06/15/19 07:50 Urine Color Yellow 06/15/19 08:40 Urine Appearance Clear 06/15/19 08:40 Urine pH 5.0 (5.0-8.0) 06/15/19 08:40 Ur Specific [place] 1.018 (1.010-1.035) 06/15/19 08:40 Urine Protein Negative (NEGATIVE) 06/15/19 08:40 Urine Glucose (UA) Negative (NEGATIVE) 06/15/19 08:40 Urine Ketones Negative (NEGATIVE) 06/15/19 08:40 Urine Blood Negative (NEGATIVE) 06/15/19 08:40 Urine Nitrite Negative (NEGATIVE) 06/15/19 08:40 Urine Bilirubin Negative (NEGATIVE) 06/15/19 08:40 Urine Urobilinogen 0.2 mg/dL (0.2-1.0) 06/15/19 08:40 Ur Leukocyte Esterase Negative (NEGATIVE) 06/15/19 08:40 RPR Titer Nonreactive (NONREACTIVE) 06/15/19 07:50 lab noted Assessment: 06/18/19 14:56 opiate withdrawal sx Plan: continue methadone detox regimen
[2019-06-18 23:33] LABS: PH,URINE 6.5 (5.0-8.0); URINE APPEARANCE CLEAR; URINE BILIRUBIN NEGATIVE (NEGATIVE); URINE COLOR YELLOW; URINE GLUCOSE (UA) NEGATIVE (NEGATIVE); URINE KETONE TRACE (NEGATIVE); URINE LEUK ESTERASE NEGATIVE (NEGATIVE); URINE NITRITE NEGATIVE (NEGATIVE); URINE PROTEIN NEGATIVE (NEGATIVE)
[2019-06-18] MEDS: THIAMINE HCL 100 MG TABLET (FP) PO SCH (23:35)
[2019-06-19] MEDS ORDERED: AZITHROMYCIN 250 MG TABLET PO ONE (03:20)
--- NOTE | 2019-06-19 03:24 | PN ---
[facility] Progress Note Note: hospital return for fevers x 4 days. Pts fevers have been continuous since saturday. Pt endorses a productive cough with brown sputum. pt denies throat pain, chest pain, palpitations, nausea, vomiting. Pt also endorses b/l leg pain and back pain. Vital Signs Temperature 95.9 F L 06/19/19 03:08 Pulse Rate 59 L 06/19/19 03:08 Respiratory Rate 18 06/19/19 03:08 Blood Pressure 113/63 06/19/19 03:08 O2 Sat by Pulse Oximetry (%) ED Treatment Course - LABORATORY CBC & Chemistry Diagram: 06/18/19 20:16 06/18/19 20:23 - ADDITIONAL ORDERS Additional order review: 06/18/19 20:16 RBC 4.50 MCV 89.2 MCHC 33.5 RDW 13.8 MPV 8.8 Neutrophils % 64.9 Lymphocytes % 16.1 D Monocytes % 15.0 H Eosinophils % 3.4 D Basophils % 0.6 - RADIOLOGY Radiology Studies Ordered: Category Date Time Status CHEST CT WITHOUT CONTRAST [CT] Stat CT Scan 06/18/19 20:43 Ordered CHEST X-RAY PORTABLE* [RAD] Stat Radiology 06/18/19 20:17 Ordered DUPLEX VASCUL US-2LEGS [US] Stat Ultrasound 06/18/19 20:43 Ordered A-PNA P- Medical Decision Making - Medical Decision Making 06/18/19 21:00 39 yo M from [facility] for fever x 4 days -rapid strep negative -quant from 02/2019 negative . ppd from 06/16 negative -cbc,cmp -blood cultures from 06/16 negative, will reculture -ct chest w/o contrast -pt had b/l swelling and calf tenderness, r/o DVT --> b/l duplex 06/18/19 22:39 Small patchy left upper lobe, left lower lobe and right lower lobe infiltrates are noted. Several mildly enlarged bilateral axillary lymph nodes are seen. Several slightly prominent mediastinal lymph nodes are noted. There is partial imaging of splenomegaly. - will start cef /azithro Duplex negative for DVT -HIV neg 06/18/19 23:03 DC on levaquin, azithro back to [facility] 06/18/19 23:44 Discharge - Discharge Information Problems reviewed: Yes Clinical Impression/Diagnosis: Pneumonia Qualifiers: Pneumonia type: due to unspecified organism Laterality: left Lung location: upper lobe of lung Qualified Code(s): J18.9 - Pneumonia, unspecified organism Condition: Good Disposition: HOME - Additional Discharge Information Prescriptions: Azithromycin [Zithromax 250mg Tablets -] 250 mg PO UTDICT #6 tab levoFLOXacin [Levaquin] 750 mg PO DAILY 5 Days #5 tab - Follow up/Referral Referrals: Saundra Byrd RES [Emergency Midlevel Provider] - [facility] – [place] [facility] [place] [Provider Group] - Patient Discharge Instructions Patient Printed Discharge Instructions: DI for Pneumonia -- Adult Additional Instructions: You came to the hospital for fever and cough. We did a CT of your chest showing that you have a pneumonia. Please take Levaquin 750 mg for five days. Please take Azithromycin for 5 days. On the first day, take 2 pills. For the next 4 days, you will take 1 pill each day. Please follow up with your primary care physician within 1 week to monitor your improvement. If you do not have a physician, you may come to the [facility] in [facility]. If you have any new, worsening, or concerning symptoms please return to the ED. You are being discharged back to [facility] for you to continue your rehab. - Post Discharge Activity
[2019-06-19] MEDS ORDERED: METHADONE HCL 5 MG TABLET (FOR DETOX USE ONLY) PO ONE (06:00)
--- NOTE | 2019-06-19 08:35 | PN ---
BHS COWS - Scale Resting Pulse: 0= [place] 80 or Below Sweatin= No chills or Flushing Restless Observation: 0= Sits Still Pupil Size: 0= Normal to Room Light Bone or Joint Aches: 0= None Runny Nose/ Eye Tearin= None GI Upset > 30mins: 0= None Tremor Observation of Outstretched Hands: 4= Gross Tremor/Twitching Yawning Observation: 0= None Anxiety or Irritability: 1=Feels Anxious/Irritable Goose Flesh Skin: 0=Smooth Skin COWS Score: 5 BHS Progress Note (SOAP) Subjective: alert,no complaint Objective: 06/19/19 08:37 Vital Signs Temperature 95.8 F L 06/19/19 05:54 Pulse Rate 50 L 06/19/19 05:54 Respiratory Rate 20 06/19/19 05:54 Blood Pressure 91/59 L 06/19/19 05:54 O2 Sat by Pulse Oximetry (%) Assessment: 06/19/19 08:37 detox completed,no withdrawal symptom Plan: discharge today to [facility]
--- NOTE | 2019-06-19 08:41 | DS ---
[facility] Detox Discharge Summary Admission Date: 06/14/19 Discharge Date: 06/19/19 - History Present History: Opioid Dependence Additional Comments: follow up with [facility] as arrangement - Physical Exam Results Vital Signs: Vital Signs Temperature 95.8 F L 06/19/19 05:54 Pulse Rate 50 L 06/19/19 05:54 Respiratory Rate 20 06/19/19 05:54 Blood Pressure 91/59 L 06/19/19 05:54 O2 Sat by Pulse Oximetry (%) Pertinent Admission Physical Exam Findings: withdrawal signs and symptom Laboratory Last Values WBC 4.3 K/mm3 (4.0-10.0) 06/15/19 07:50 RBC 4.32 M/mm3 (4.00-5.60) 06/15/19 07:50 Hgb 12.8 GM/dL (11.7-16.9) 06/15/19 07:50 Hct 38.2 % (35.4-49) 06/15/19 07:50 MCV 88.5 fl (80-96) 06/15/19 07:50 MCH 29.7 pg (25.7-33.7) 06/15/19 07:50 MCHC 33.5 g/dl (32.0-35.9) 06/15/19 07:50 RDW 14.0 % (11.9-15.9) 06/15/19 07:50 Plt Count 197 K/MM3 (134-434) D 06/15/19 07:50 MPV 8.8 fl (7.5-11.1) 06/15/19 07:50 Sodium 137 mmol/L (136-145) 06/15/19 07:50 Potassium 4.1 mmol/L (3.5-5.1) 06/15/19 07:50 Chloride 101 mmol/L (98-107) 06/15/19 07:50 Carbon Dioxide 32 mmol/L (21-32) 06/15/19 07:50 Anion Gap 5 MMOL/L (8-16) L 06/15/19 07:50 BUN 16.1 mg/dL (7-18) 06/15/19 07:50 Creatinine 0.8 mg/dL (0.55-1.3) 06/15/19 07:50 Est GFR (CKD-EPI)AfAm 131.34 06/15/19 07:50 Est GFR (CKD-EPI)NonAf 113.32 06/15/19 07:50 Random Glucose 95 mg/dL (74-106) 06/15/19 07:50 Calcium 9.0 mg/dL (8.5-10.1) 06/15/19 07:50 Total Bilirubin 0.4 mg/dL (0.2-1) 06/15/19 07:50 AST 23 U/L (15-37) 06/15/19 07:50 ALT 27 U/L (13-61) 06/15/19 07:50 Alkaline Phosphatase 49 U/L (45-117) 06/15/19 07:50 Ammonia 27.60 umol/L (11-32) 06/17/19 11:15 Total Protein 6.1 g/dl (6.4-8.2) L 06/15/19 07:50 Albumin 3.5 g/dl (3.4-5.0) 06/15/19 07:50 Urine Color Yellow 06/18/19 17:51 Urine Appearance Clear 06/18/19 17:51 Urine pH 6.5 (5.0-8.0) 06/18/19 17:51 Ur Specific Mcgrath 1.025 (1.010-1.035) 06/18/19 17:51 Urine Protein Negative (NEGATIVE) 06/18/19 17:51 Urine Glucose (UA) Negative (NEGATIVE) 06/18/19 17:51 Urine Ketones Trace (NEGATIVE) H 06/18/19 17:51 Urine Blood Negative (NEGATIVE) 06/18/19 17:51 Urine Nitrite Negative (NEGATIVE) 06/18/19 17:51 Urine Bilirubin Negative (NEGATIVE) 06/18/19 17:51 Urine Urobilinogen 1.0 mg/dL (0.2-1.0) 06/18/19 17:51 Ur Leukocyte Esterase Negative (NEGATIVE) 06/18/19 17:51 RPR Titer Nonreactive (NONREACTIVE) 06/15/19 07:50 - Treatment Hospital Course: Detox Protocol Followed, Detoxed Safely, Responded well, Discharged Condition Good, Rehab Referral Accepted Patient has Accepted a Rehab Referral to: [facility] - Medication Discharge Medications: Ambulatory Orders levoFLOXacin [Levaquin] 750 mg PO DAILY 5 Days #5 tab 06/18/19 - Diagnosis (1) Opioid dependence with withdrawal Current Visit: No Status: Acute (2) Nicotine use disorder Current Visit: No Status: Acute (3) Cocaine use disorder Current Visit: No Status: Chronic (4) IVDU (intravenous drug user) Current Visit: No Status: Chronic - AMA Did Patient Leave Against Medical Advice: No
[2019-06-19] MEDS: NICOTINE 21 MG/24 HOURS TOPICAL PATCH TD SCH (10:17)
[2019-06-19] MEDS: PRENATAL VITAMINS W/ FOLIC ACID TABLET (FP) PO SCH (10:17)
[2019-06-19] MEDS: IBUPROFEN 400 MG TABLET (FP) PO PRN (10:34)
[2019-06-19] MEDS: METHOCARBAMOL 500 MG TABLET PO PRN (10:34)
--- NOTE | 2019-06-19 11:36 | PN ---
S Progress Note Note: [facility]
[2019-06-19 12:23] VITALS: BP 108/69; PULSE 74; TEMP 96.8
[2019-06-20] MEDS ORDERED: AZITHROMYCIN 250 MG TABLET PO SCH (10:00)
== END 2019-06-19 12:32 | disposition home or self-care (01) | DRG 773 ==
LOC: YASAS 08:31 → Y3N 12:25
PROVIDERS: ADMIT Allergy & Immunology; ATTEND Allergy & Immunology
PROC: HZ2ZZZZ Detoxification Services for Substance Abuse Treatment (ICD-10-PCS; principal; 2019-06-14)
DX: F11.23 Opioid dependence with withdrawal (principal); F14.20 Cocaine dependence, uncomplicated; F10.10 Alcohol abuse, uncomplicated; F17.200 Nicotine dependence, unspecified, uncomplicated; F32.9 Major depressive disorder, single episode, unspecified; R60.0 Localized edema; J18.9 Pneumonia, unspecified organism; Z88.0 Allergy status to penicillin
CPT/HCPCS: 36415; 80053; 81003; 82140; 85027; 86593

== ENCOUNTER 2019-06-16 16:54 | Emergency (ER) | payer OTHER ==
--- NOTE | 2019-06-16 17:04 | PDOC ---
History of Present Illness - General Stated Complaint: FEVER Time Seen by Provider: 06/16/19 16:56 - History of Present Illness Initial Comments: 06/16/19 17:08 Mr. Anderson is a 39 yo male w/ pmh of heroin, cocaine, street methadone, and alcohol abuse who presents from [facility] detox facility for evaluation of fever and altered mental status. Patient has been receiving treatment particularly from IV heroin and cocaine for the last 2 days. Per detox chart, patient last used heroin on 06/12 (5 bags, inject), cocaine 06/13 (8 bags, injection), non-rx methadone 06/13 (40mg, oral), and alcohol 05/08 (1 pint liquor and 6 12oz beers). Patient unable to provide further history. Past History - Past Medical History Allergies/Adverse Reactions: Allergies Allergy/AdvReac Type Severity Reaction Status Date / Time Penicillins Allergy Mild Verified 06/16/19 17:20 Home Medications: Ambulatory Orders NK [No Known Home Medication] 06/16/19 Anemia: No Asthma: No Cancer: No Cardiac Disorders: No CVA: No COPD: No CHF: No Dementia: No Diabetes: No GI Disorders: No Disorders: No HTN: No Hypercholesterolemia: No Kidney Stones: No Liver Disease: No Seizures: No Thyroid Disease: No - Surgical History Abdominal Surgery: No Appendectomy: No Cardiac Surgery: No Cholecystectomy: No Lung Surgery: No Neurologic Surgery: No Orthopedic Surgery: Yes (arthroscopic surgery of right elbow) - Reproductive History Testicular Surgery: No - Psycho Social/Smoking Cessation Hx Smoking History: Current every day smoker Have you smoked in the past 12 months: Yes Number of Cigarettes Smoked Daily: 10 'Breaking Loose' booklet given: 06/14/19 Hx Alcohol Use: No Drug/Substance Use Hx: Yes Substance Use Type: Cocaine, Heroin Hx Substance Use Treatment: Yes ([facility] 03/03/19 to 03/05/19) Review of Systems - Review of Systems Comments:: 06/16/19 17:08 Unable to obtain further. *Physical Exam - Physical Exam Comments: 06/16/19 17:09 GENERAL: +Patient withdraws to pain only, warm to touch HEAD: No signs of trauma, normocephalic, atraumatic EYES: +Pupils pinpoint. EOMI, sclera anicteric, conjunctiva clear ENT: Auricles normal inspection, hearing grossly normal, nares patent, oropharynx clear without exudates. Moist mucosa NECK: Normal ROM, supple, no lymphadenopathy, JVD, or masses LUNGS: +Diffuse wheezes appreciated HEART: Regular rate and rhythm, normal S1 and S2, no murmurs, rubs or gallops, peripheral pulses normal and equal bilaterally. ABDOMEN: Soft, nontender, normoactive bowel sounds. No guarding, no rebound. No masses EXTREMITIES: Normal inspection, Normal range of motion, no edema. No clubbing or cyanosis. NEUROLOGICAL: +Unable to assess SKIN: Warm, Dry, normal turgor, no rashes or lesions noted. ED Treatment Course - LABORATORY CBC & Chemistry Diagram: 06/16/19 17:30 06/16/19 17:30 Medical Decision Making - Medical Decision Making 06/16/19 17:38 Mr. Anderson is a 39 yo male w/ pmh as described who presents for evaluation of AMS w/ fever concerning for infection vs. encephalopathy vs. medication overdose vs. drug overdose vs. combination of etiologies. Patient evaluated with sepsis labs. Given patient's pinpoint pupils, trial dose of narcan given w / resultant improval immediately of mental status. Patient quickly responsive and oriented to self. Suspect opioid administration as etiology of AMS. Patient given fluids and tylenol and will continue to look for infection source. 06/16/19 18:44 Patient labs grossly wnl as below. Patient remains alert and oriented and has no complaints. CXR negative. Patient blood cultures will be followed up however given no complaints and patient return to baseline following narcan, concern for acute process very low at this time. Patient will be discharged for return to [facility] for further detox and observation with instructions to return if any concerning findings. Discharging to home. Laboratory Results - last 24 hr 06/16/19 06/16/19 06/16/19 17:30 17:30 17:30 WBC 6.7 RBC 4.46 Hgb 13.4 Hct 39.8 MCV 89.1 MCH 30.1 MCHC 33.8 RDW 13.5 Plt Count 193 MPV 8.8 Absolute Neuts (auto) 5.2 Neutrophils % 78.2 Lymphocytes % 9.0 Monocytes % 10.7 H Eosinophils % 1.5 Basophils % 0.6 Nucleated RBC % 0 VBG pH POC VBG pCO2 POC VBG pO2 VBG HCO3 VBG O2 Sat (Kiki) VBG Base Excess Sodium 136 Potassium 3.9 Chloride 99 Carbon Dioxide 35 H Anion Gap 2 L BUN 14.9 Creatinine 0.9 Est GFR (CKD-EPI)AfAm 125.13 Est GFR (CKD-EPI)NonAf 107.97 Random Glucose 102 Calcium 8.9 Total Bilirubin 0.3 AST 25 ALT 26 Alkaline Phosphatase 49 Total Protein 6.5 Albumin 3.8 Urine Color Yellow Urine Appearance Clear Urine pH 6.0 Ur Specific [place] 1.015 Urine Protein Negative Urine Glucose (UA) Negative Urine Ketones Negative Urine Blood Negative Urine Nitrite Negative Urine Bilirubin Negative Urine Urobilinogen 0.2 Ur Leukocyte Esterase Negative Influenza A (Rapid) Influenza B (Rapid) 06/16/19 06/16/19 17:30 18:00 WBC RBC Hgb Hct MCV MCH MCHC RDW Plt Count MPV Absolute Neuts (auto) Neutrophils % Lymphocytes % Monocytes % Eosinophils % Basophils % Nucleated RBC % VBG pH 7.39 POC VBG pCO2 56.0 H POC VBG pO2 79.5 H VBG HCO3 32.8 H VBG O2 Sat (Kiki) 95.5 H VBG Base Excess 6.5 H Sodium Potassium Chloride Carbon Dioxide Anion Gap BUN Creatinine Est GFR (CKD-EPI)AfAm Est GFR (CKD-EPI)NonAf Random Glucose Calcium Total Bilirubin AST ALT Alkaline Phosphatase Total Protein Albumin Urine Color Urine Appearance Urine pH Ur Specific [place] Urine Protein Urine Glucose (UA) Urine Ketones Urine Blood Urine Nitrite Urine Bilirubin Urine Urobilinogen Ur Leukocyte Esterase Influenza A (Rapid) Negative Influenza B (Rapid) Negative Discharge - Discharge Information Problems reviewed: Yes Clinical Impression/Diagnosis: Fever Qualifiers: Fever type: unspecified Qualified Code(s): R50.9 - Fever, unspecified Opioid intoxication Qualifiers: Complication of substance-induced condition: with unspecified complication Qualified Code(s): F11.929 - Opioid use, unspecified with intoxication, unspecified Disposition: HOME - Follow up/Referral - Patient Discharge Instructions Patient Printed Discharge Instructions: DI for Fever (Symptom) -- Adult Additional Instructions: You were evaluated today in the ER for your fever and altered mental status. Your mental status improved significantly with narcan and remained stable. Your labs were not concerning and you had no complaints following this. We gave you tylenol for your fever and believe you are safe for discharge home at this time. Please follow-up with primary care provider for further evaluation as needed. Return to ER if any pain, further altered mental status, or other concerning symptoms. - Post Discharge Activity
[2019-06-16] MEDS ORDERED: NALOXONE HCL 0.4 MG/ML VIAL IVPUSH ONE ×2 (17:11→17:23)
[2019-06-16] MEDS ORDERED: NALOXONE HCL 0.4 MG/ML VIAL ONE (17:16)
[2019-06-16 17:20] VITALS: BMI 30.2
--- NOTE | 2019-06-16 17:27 | PDOC ---
Documentation entered by Yann Stacy SCRIBE, acting as scribe for Beth Duff MD. Beth Duff MD: This documentation has been prepared by the Regis tadeo Daniel, SCRIBE, under my direction and personally reviewed by me in its entirety. I confirm that the documentation accurately reflects all work, treatment, procedures, and medical decision making performed by me. Attending Attestation - Resident Resident Name: Hossein Iglesias - ED Attending Attestation I have performed the following: I have examined & evaluated the patient, The case was reviewed & discussed with the resident, I agree w/resident's findings & plan, Exceptions are as noted - HPI HPI: 06/16/19 17:26 39-year-old male brought in by ambulance from [facility] for altered mental status and fever HPI he has been in detox for 2 days for IVDA heroin - Physicial Exam PE: 06/16/19 17:27 Lethargic 39-year-old female brought in by ambulance Head no scalp lacerations or hematomas appreciated Eyes pinpoint pupils Neck supple Lungs no wheezing or rales appreciated CVS regular rate and rhythm S1-S2 Abdomen flat nontender Extremities he has track don on his right lower forearm and also there is a puncture site dorsal of his right foot Neuro lethargic,moving all extremities ,able to follow very simple commands but not conversant - Medical Decision Making 06/16/19 17:29 Rectal temp 102.3 Sepsis work-up initiated Because patient has been both pinpoint pupils and history of opiate abuse small amount of Narcan will be given to see if this makes him alert Differential diagnosis includes abscess, skin infections due to IVDA, pyelonephritis,UTI, bacteremia, endocarditis,meningitis Patient will be admitted 06/16/19 17:34 06/16/19 17:41 After the administration of Narcan, the patient became alert and conversant responding to questions in [place] 06/16/19 19:17 Patient has a mild upper respiratory infection but no infiltrates or consolidation appreciated on his chest x-ray Urinalysis was negative CBC does not show any leukocytosis or shift Blood cultures result sent and pending Influenza is negative Impression viral syndrome with fever will discharge back to his facility
[2019-06-16] MEDS ORDERED: ACETAMINOPHEN INJECTION 100 ML IVPB ONE (17:39)
[2019-06-16] MEDS ORDERED: SODIUM CHLORIDE 1,000 ML IV STA (17:41)
[2019-06-16] MEDS ORDERED: ACETAMINOPHEN 1000 MG/100 ML VIAL (NON FORMULARY) IVPB ONE (17:41)
[2019-06-16 18:10] LABS: VENOUS PH 7.39 (7.31-7.41); VENOUS PO2 79.5 mmHg (28-48)
[2019-06-16 18:13] LABS: BASO % 0.6 % (0-2.0); EOS % 1.5 % (0-4.5); HEMATOCRIT 39.8 % (35.4-49); HEMOGLOBIN 13.4 GM/dL (11.7-16.9); MCH 30.1 pg (25.7-33.7); MCHC 33.8 g/dl (32.0-35.9); MEAN CELL VOLUME 89.1 fl (80-96); MEAN PLT VOLUME 8.8 fl (7.5-11.1); MONO % 10.7 % (3.8-10.2); NEUT % 78.2 % (42.8-82.8); PLATELET COUNT 193 K/MM3 (134-434); RBC 4.46 M/mm3 (4.00-5.60); RDW 13.5 % (11.9-15.9); WHITE BLOOD COUNT 6.7 K/mm3 (4.0-10.0)
[2019-06-16 18:39] LABS: URINE APPEARANCE CLEAR; URINE BILIRUBIN NEGATIVE (NEGATIVE); URINE COLOR YELLOW; URINE GLUCOSE (UA) NEGATIVE (NEGATIVE); URINE KETONE NEGATIVE (NEGATIVE); URINE LEUK ESTERASE NEGATIVE (NEGATIVE); URINE NITRITE NEGATIVE (NEGATIVE); URINE PROTEIN NEGATIVE (NEGATIVE); URINE UROBILINOGEN 0.2 mg/dL (0.2-1.0)
[2019-06-16 18:42] LABS: ALBUMIN 3.8 g/dl (3.4-5.0); ALK PHOS 49 U/L (45-117); ANION GAP 2 MMOL/L (8-16); BILIRUBIN,TOTAL 0.3 mg/dL (0.2-1); BLOOD UREA NITROGEN 14.9 mg/dL (7-18); CALCIUM 8.9 mg/dL (8.5-10.1); CHLORIDE 99 mmol/L (98-107); CO2 35 mmol/L (21-32); CREATININE 0.9 mg/dL (0.55-1.3); GLUCOSE,RANDOM 102 mg/dL (74-106); POTASSIUM 3.9 mmol/L (3.5-5.1); SGOT/AST 25 U/L (15-37); SGPT/ALT 26 U/L (13-61); SODIUM 136 mmol/L (136-145); TOT PROT 6.5 g/dl (6.4-8.2)
[2019-06-16 19:29] VITALS: BP 118/80; PULSE 78; TEMP 98.7
--- NOTE | 2019-06-17 11:04 | EKG ---
Test Reason : Blood Pressure : / mmHG Vent. Rate : 085 BPM Atrial Rate : 085 BPM P-R Int : 144 ms QRS Dur : 080 ms QT Int : 346 ms P-R-T Axes : 068 053 019 degrees QTc Int : 411 ms NORMAL SINUS RHYTHM NORMAL ECG NO PREVIOUS ECGS AVAILABLE Confirmed by TRAVIS GILLIS, CARRINGTON ([id number]) on 06/17/2019 11:03:49 AM Referred By: Confirmed By:CARRINGTON ROBLES MD
--- NOTE | 2019-06-18 18:37 | PN ---
Progress Note (short form) - Note Progress Note: Received call from nurse regarding persistent fever. Pt has been febrile since 06/16/19- was seen in ED & worked up for fever of unknown origin. Resolved w/ tylenol. UA, blood & urine cx's neg. No leukocytosis. No electrolyte abnormalities. CXR shows cardiomegaly, some congestive changes Subjective: Today patient remains febrile Tmax 103.4F. Patient endorses persistent cough productive of brown sputum for the past 4 days. Denies sick contacts. TB testing negative when seen in the hospital on 06/16. On ROS patient denies chest pain/ hematuria/dysuria/ penile discharge/ chills/ NVD. Objective: VS: BP 124/69 T 101.2F HR 99 RR 18 SaO2 94% Physical exam: Neuro: AOx3 HEENT: + lymphadenopathy (submandibular & postauricular) w/ tenderness to palpation of LN's. EOMI/ PERRLA. Cardio: Tachycardic. S1S2 heard no m/r/g. Pulm: + crackles noted L upper lobe Abd: Soft NTND. No suprapubic tenderness. Bowel sounds + Extr: TTP anterior tibia b/l. No calf tenderness. Savage's sign negative b/l. Skin: No abscesses/ lesions noted on exam A/P: -Tylenol 650mg given at 4:50PM-- no abx received -Flu swab, TB testing negative -Fevers persisting s/p tylenol & rest -Sending to ED for further evaluation of fever of unknown origin Case discussed with Dr. Saundra Byrd in [facility] ED
== END 2019-06-16 20:57 | disposition home or self-care (01) ==
LOC: JER 16:54
PROC: 3E033NZ Introduction of Analgesics, Hypnotics, Sedatives into Peripheral Vein, Percutaneous Approach (ICD-10-PCS; principal; 2019-06-16)
PROC: 3E033GC Introduction of Other Therapeutic Substance into Peripheral Vein, Percutaneous Approach (ICD-10-PCS; 2019-06-16)
DX: F11.129 Opioid abuse with intoxication, unspecified (principal); R50.9 Fever, unspecified; F14.10 Cocaine abuse, uncomplicated; F10.10 Alcohol abuse, uncomplicated; Z59.0 Homelessness
CPT/HCPCS: 36415; 71045-TC-FY; 80053; 81003; 82803; 83605; 84484; 85025; 87040; 87086; 87804; 93005; 93010; 96374; 96375; 99283-25; J0131; J7030

== ENCOUNTER 2019-06-18 19:47 | Emergency (ER) | payer OTHER ==
[2019-06-18 20:01] VITALS: BP 112/64; PULSE 80; TEMP 100.5; BMI 26.6
[2019-06-18 20:39] LABS: BASO % 0.6 % (0-2.0); EOS % 3.4 % (0-4.5); HEMATOCRIT 40.1 % (35.4-49); HEMOGLOBIN 13.4 GM/dL (11.7-16.9); LYMPH % 16.1 % (8-40); MCH 29.8 pg (25.7-33.7); MCHC 33.5 g/dl (32.0-35.9); MEAN CELL VOLUME 89.2 fl (80-96); MEAN PLT VOLUME 8.8 fl (7.5-11.1); NEUT % 64.9 % (42.8-82.8); PLATELET COUNT 172 K/MM3 (134-434); RDW 13.8 % (11.9-15.9); WHITE BLOOD COUNT 4.6 K/mm3 (4.0-10.0)
[2019-06-18] MEDS ORDERED: SODIUM CHLORIDE 1,000 ML IV STA (20:39)
--- NOTE | 2019-06-18 20:52 | PDOC ---
History of Present Illness - General Chief Complaint: Cold Symptoms Stated Complaint: FEVER Time Seen by Provider: 06/18/19 19:57 History Source: Patient - History of Present Illness Initial Comments: 06/18/19 20:52 39 yo M who presents from [facility](detox from heroin, cocaine) for fevers x 4 days. Pts fevers have been continuous since saturday. Pt endorses a productive cough with brown sputum. pt denies throat pain, chest pain, palpitations, nausea , vomiting. Pt also endorses b/l leg pain and back pain. 06/18/19 20:54 06/18/19 20:56 Past History - Past Medical History Allergies/Adverse Reactions: Allergies Allergy/AdvReac Type Severity Reaction Status Date / Time Penicillins Allergy Mild Verified 06/18/19 19:59 Home Medications: Ambulatory Orders Azithromycin [Zithromax 250mg Tablets -] 250 mg PO UTDICT #6 tab 06/18/19 levoFLOXacin [Levaquin] 750 mg PO DAILY 5 Days #5 tab 06/18/19 Anemia: No Asthma: No Cancer: No Cardiac Disorders: No CVA: No COPD: No CHF: No Dementia: No Diabetes: No GI Disorders: No Disorders: No HTN: No Hypercholesterolemia: No Kidney Stones: No Liver Disease: No Seizures: No Thyroid Disease: No - Surgical History Abdominal Surgery: No Appendectomy: No Cardiac Surgery: No Cholecystectomy: No Lung Surgery: No Neurologic Surgery: No Orthopedic Surgery: Yes (arthroscopic surgery of right elbow) - Reproductive History Testicular Surgery: No - Psycho Social/Smoking Cessation Hx Smoking History: Never smoked Have you smoked in the past 12 months: No Number of Cigarettes Smoked Daily: 10 Information on smoking cessation initiated: No 'Breaking Loose' booklet given: 06/14/19 Hx Alcohol Use: No Drug/Substance Use Hx: No Substance Use Type: Cocaine, Heroin Hx Substance Use Treatment: Yes ([facility] 03/03/19 to 03/05/19) Review of Systems - Review of Systems Able to Perform ROS?: Yes Constitutional: Yes: Fever. No: Chills HEENTM: No: Throat Pain, Throat Swelling Respiratory: Yes: Cough, Productive cough (brown sputum). No: Shortness of Breath Cardiac (ROS): No: Chest Pain, Palpitations ABD/GI: No: Constipated, Diarrhea, Nausea Musculoskeletal: Yes: Back Pain *Physical Exam - Vital Signs Last Vital Signs Temp Pulse Resp BP Pulse Ox 100.5 F H 80 20 112/64 100 06/18/19 19:59 06/18/19 19:59 06/18/19 19:59 06/18/19 19:59 06/18/19 19:59 - Physical Exam General Appearance: Yes: Nourished, Appropriately Dressed HEENT: positive: EOMI, Normal Voice, Pharyngeal Erythema, Tonsillar Erythema. negative: Tonsillar Exudate Neck: positive: Lymphadenopathy (L) Respiratory/Chest: positive: Lungs Clear, Normal Breath Sounds, Crackles (L side ). negative: Respiratory Distress, Accessory Muscle Use Cardiovascular: positive: Regular Rhythm, Regular Rate, S1, S2. negative: JVD Gastrointestinal/Abdominal: positive: Normal Bowel Sounds, Soft. negative: Tender, Organomegaly, Distended, Rebound, Tenderness, Hepatomegaly Musculoskeletal: negative: CVA Tenderness Extremity: positive: Normal Inspection, Swelling, Calf Tenderness (b/l) Integumentary: positive: Normal Color, Dry, Warm Neurologic: positive: Fully Oriented ED Treatment Course - LABORATORY CBC & Chemistry Diagram: 06/18/19 20:16 06/18/19 20:23 - ADDITIONAL ORDERS Additional order review: 06/18/19 20:16 RBC 4.50 MCV 89.2 MCHC 33.5 RDW 13.8 MPV 8.8 Neutrophils % 64.9 Lymphocytes % 16.1 D Monocytes % 15.0 H Eosinophils % 3.4 D Basophils % 0.6 - RADIOLOGY Radiology Studies Ordered: Category Date Time Status CHEST CT WITHOUT CONTRAST [CT] Stat CT Scan 06/18/19 20:43 Ordered CHEST X-RAY PORTABLE* [RAD] Stat Radiology 06/18/19 20:17 Ordered DUPLEX VASCUL US-2LEGS [US] Stat Ultrasound 06/18/19 20:43 Ordered Medical Decision Making - Medical Decision Making 06/18/19 21:00 39 yo M from [facility] for fever x 4 days -rapid strep negative -quant from 02/2019 negative . ppd from 06/16 negative -cbc,cmp -blood cultures from 06/16 negative, will reculture -ct chest w/o contrast -pt had b/l swelling and calf tenderness, r/o DVT --> b/l duplex 06/18/19 22:39 Small patchy left upper lobe, left lower lobe and right lower lobe infiltrates are noted. Several mildly enlarged bilateral axillary lymph nodes are seen. Several slightly prominent mediastinal lymph nodes are noted. There is partial imaging of splenomegaly. - will start cef /azithro Duplex negative for DVT -HIV neg 06/18/19 23:03 DC on levaquin, azithro back to [facility] 06/18/19 23:44 Discharge - Discharge Information Problems reviewed: Yes Clinical Impression/Diagnosis: Pneumonia Qualifiers: Pneumonia type: due to unspecified organism Laterality: left Lung location: upper lobe of lung Qualified Code(s): J18.9 - Pneumonia, unspecified organism Condition: Good Disposition: HOME - Additional Discharge Information Prescriptions: Azithromycin [Zithromax 250mg Tablets -] 250 mg PO UTDICT #6 tab levoFLOXacin [Levaquin] 750 mg PO DAILY 5 Days #5 tab - Follow up/Referral Referrals: Saundra Byrd RES [Emergency Midlevel Provider] - [facility] [place] [facility] [place] Group] - Patient Discharge Instructions Patient Printed Discharge Instructions: DI for Pneumonia -- Adult Additional Instructions: You came to the hospital for fever and cough. We did a CT of your chest showing that you have a pneumonia. Please take Levaquin 750 mg for five days. Please take Azithromycin for 5 days. On the first day, take 2 pills. For the next 4 days, you will take 1 pill each day. Please follow up with your primary care physician within 1 week to monitor your improvement. If you do not have a physician, you may come to the [facility] in [facility]. If you have any new, worsening, or concerning symptoms please return to the ED. You are being discharged back to [facility] for you to continue your rehab. - Post Discharge Activity
[2019-06-18 21:17] LABS: ALBUMIN 3.5 g/dl (3.4-5.0); BILIRUBIN,TOTAL 0.5 mg/dL (0.2-1); BLOOD UREA NITROGEN 11.1 mg/dL (7-18); CALCIUM 8.2 mg/dL (8.5-10.1); CREATININE 0.8 mg/dL (0.55-1.3); POTASSIUM 3.9 mmol/L (3.5-5.1); TOT PROT 6.4 g/dl (6.4-8.2)
[2019-06-18] MEDS ORDERED: CEFTRIAXONE 1,000 MG in DEXTROSE 5%-WATER - 50 ML IVPB ONE (22:51)
[2019-06-18] MEDS ORDERED: AZITHROMYCIN IVPB 500 MG in DEXTROSE 5%-WATER - 250 ML IVPB ONE (22:51)
[2019-06-18] MEDS ORDERED: ACETAMINOPHEN 325 MG TABLET (FP) PO PRN (22:58)
[2019-06-18] MEDS ORDERED: CEFTRIAXONE 1 GM/50 ML BAG ONE (23:21)
[2019-06-18] MEDS ORDERED: ACETAMINOPHEN 325 MG TABLET (FP) ONE (23:23)
--- NOTE | 2019-06-18 23:44 | PDOC ---
Documentation entered by Sera Colon SCRIBE, acting as scribe for Carmen Riley MD. Carmen Riley MD: This documentation has been prepared by the Isaiah tadeo Brenda, SCRIBE, under my direction and personally reviewed by me in its entirety. I confirm that the documentation accurately reflects all work, treatment, procedures, and medical decision making performed by me. Attending Attestation - Resident Resident Name: Saundra Byrd - ED Attending Attestation I have performed the following: I have examined & evaluated the patient, The case was reviewed & discussed with the resident, I agree w/resident's findings & plan, Exceptions are as noted - HPI HPI: 06/18/19 22:19 Mr. Anderson is a 39 yo M who presents from [facility] (detox from IV heroin and cocaine) for fevers x 4 days. Patient was admitted to [facility] on Pts fevers have been continuous since saturday. Patient denies chest pain, shortness of breath, but does note a productive cough with brown sputum. Patient denies throat pain, ear pain, headache Patient denies nausea, vomiting. Patient denies dysuria, hematuria He only reports bilateral flank pain as well as bilateral leg pain 06/18/19 20:54 - Physicial Exam PE: 06/18/19 22:23 General Appearance: Yes: Nourished, Appropriately Dressed HEENT: positive: EOMI, Normal Voice, Pharyngeal Erythema, Tonsillar Erythema. negative: Tonsillar Exudate Neck: positive: Lymphadenopathy (L) Respiratory/Chest: positive: Lungs Clear, Normal Breath Sounds, Crackles (L side ). negative: Respiratory Distress, Accessory Muscle Use Cardiovascular: positive: Regular Rhythm, Regular Rate, S1, S2. negative: JVD Gastrointestinal/Abdominal: positive: Normal Bowel Sounds, Soft. negative: Tender, Organomegaly, Distended, Rebound, Tenderness, Hepatomegaly Musculoskeletal: negative: CVA Tenderness Extremity: positive: Normal Inspection, Swelling, Calf Tenderness (b/l) Integumentary: positive: Normal Color, Dry, Warm Neurologic: positive: Fully Oriented - Medical Decision Making 06/18/19 23:18 39-year-old male presenting to the emergency department with persistent fevers and a cough Differential diagnosis includes but is not limited to: Upper respiratory infection, bronchitis, pneumonia, viral infection We will do: Labs EKG Chest x-ray already performed and was not revealing Therefore we will do CT chest Laboratory Tests 06/18/19 06/18/19 06/18/19 20:06 20:16 20:23 WBC 4.6 Hgb 13.4 Hct 40.1 Plt Count 172 BUN 11.1 Creatinine 0.8 HIV 1&2 Antibody Screen HIV P24 Antigen Group A Strep Rapid Negative 06/18/19 21:29 WBC Hgb Hct Plt Count BUN Creatinine HIV 1&2 Antibody Screen Negative HIV P24 Antigen Negative Group A Strep Rapid 06/18/19 23:25 CT chest: Small patchy infiltrates are seen within the anterior segment of the left upper lobe, lingula, left lower lobe posteriorly. There is also a small somewhat subtle patchy right lower lobe infiltrate posteriorly. No pleural effusion. Several mildly enlarged bilateral axillary lymph nodes Plan was to admit this patient Call placed to hospitalist Patient seen in the ER by Dr. Powell He has seen this patient in the ER Does not think he meets criteria for admission Will discharge with p.o. antibiotic Patient states he will be able to take the antibiotic upon discharge Return to the ER for any other concerns or complaints Clinical impression: Pneumonia, initial presentation 06/19/19 01:52 EKG: Normal sinus rhythm, rate of 63 bpm, axis is normal, intervals are normal including QTC which is 419ms, no ST elevation or depression, T waves are upright
[2019-06-18] MEDS ORDERED: AZITHROMYCIN IVPB 500 MG/250 ML BAG IVPB ONE (23:48)
[2019-06-18] MEDS ORDERED: KETOROLAC TROMETHAMINE 15 MG/ML VIAL IVPUSH ONE (23:59)
[2019-06-19] MEDS ORDERED: KETOROLAC TROMETHAMINE 15 MG/ML VIAL ONE (00:05)
--- NOTE | 2019-06-19 13:25 | EKG ---
Test Reason : Blood Pressure : / mmHG Vent. Rate : 063 BPM Atrial Rate : 063 BPM P-R Int : 150 ms QRS Dur : 090 ms QT Int : 410 ms P-R-T Axes : 057 061 034 degrees QTc Int : 419 ms NORMAL SINUS RHYTHM EARLY REPOLARIZATION WHEN COMPARED WITH ECG OF 16-JUN-2019 17:19, NO SIGNIFICANT CHANGE WAS FOUND Confirmed by FENG SAGASTUME MD ([id number]) on 06/19/2019 1:25:41 PM Referred By: Confirmed By:FENG SAGASTUME MD
== END 2019-06-19 02:26 | disposition home or self-care (01) ==
LOC: JER 19:47
PROC: 3E03329 Introduction of Other Anti-infective into Peripheral Vein, Percutaneous Approach (ICD-10-PCS; principal; 2019-06-18)
PROC: 3E03329 Introduction of Other Anti-infective into Peripheral Vein, Percutaneous Approach (ICD-10-PCS; 2019-06-18)
PROC: 3E0333Z Introduction of Anti-inflammatory into Peripheral Vein, Percutaneous Approach (ICD-10-PCS; 2019-06-18)
DX: J18.9 Pneumonia, unspecified organism (principal); F11.10 Opioid abuse, uncomplicated; F14.10 Cocaine abuse, uncomplicated; Z88.0 Allergy status to penicillin
CPT/HCPCS: 36415; 71045-TC-FY; 71250-TC; 80053; 85025; 87040; 87070; 87389; 87880; 93005; 93010; 93970-TC; 99284-25; J7030

== ENCOUNTER 2020-03-08 18:40 | Inpatient (IN) | payer OTHER ==
--- NOTE | 2020-03-08 19:31 | HP ---
COWS - Scale Resting Pulse: 1= [place] 81-100 Sweatin= Chills/Flushing Restless Observation: 5= Unable to Sit Still Pupil Size: 1= Pupils >than Normal Bone or Joint Aches: 4=Acute Joint/Muscle Pain Runny Nose/ Eye Tearin= None GI Upset > 30mins: 1= Stomach Cramp Tremor Observation: 0= None Yawning Observation: 0= None Anxiety or Irritability: 2=Irritable/Anxious Goose Flesh Skin: 3=Piloerection COWS Score: 18 CIWA Score - Admission Criteria OASAS Guidelines: Admission for Medically Managed Detox: Requires at least one of the followin. CIWA greater than 12 2. Seizures within the past 24 hours 3. Delirium tremens within the past 24 hours 4. Hallucinations within the past 24 hours 5. Acute intervention needed for co occurring medical disorder 6. Acute intervention needed for co occurring psychiatric disorder 7. Severe withdrawal that cannot be handled at a lower level of care (continued vomiting, continued diarrhea, abnormal vital signs) requiring intravenous medication and/or fluids 8. Admitting History and Physical - Smoking History Smoking history: Never smoked Have you smoked in the past 12 months: No Aproximately how many cigarettes per day: 10 - Alcohol/Substance Use Hx Alcohol Use: No Admission ROS S - HPI Allergies/Adverse Reactions: Allergies Allergy/AdvReac Type Severity Reaction Status Date / Time Penicillins Allergy Mild Verified 03/08/20 19:30 History of Present Illness: Search Terms: [place], 1980Search Date: 03/08/2020 19:25:24 PM The Drug Utilization Report below displays all of the controlled substance prescriptions, if any, that your patient has filled in the last twelve months. The information displayed on this report is compiled from pharmacy submissions to the Department, and accurately reflects the information as submitted by the pharmacies. This report was requested by: Mercy Lopez | Reference #: [id number] There are no results for the search terms that you entered. 40 y.o. male requesting detox from heroin use , reports 1 bundle /day via iV in UE , latest use today 2 bags , OD x 3 , most recently " i don't know " , denies MMTP , bought illicit methadone 40 mg 4 days ago . cocaine - 6 bags via IV , latest use yesterday denies other illicits or etoh tobacco : 1/2 ppd agreeable to NRT w/ gum PMHX /PSHX : denies PSych : denies . Exam Limitations: Clinical Condition - Review of Systems Constitutional: Chills, Loss of Appetite, Night Sweats EENT: reports: No Symptoms Reported Respiratory: reports: No Symptoms reported Cardiac: reports: No Symptoms Reported GI: reports: See HPI, Poor Appetite, Abdominal cramping : reports: No Symptoms Reported Musculoskeletal: reports: See HPI, Back Pain, Muscle Pain Integumentary: reports: See HPI Neuro: reports: No Symptoms reported Endocrine: reports: No Symptoms Reported Hematology: reports: No Symptoms Reported Psychiatric: reports: Orientated x3, Agitated, Anxious Patient History - Patient Medical History Hx Anemia: No Hx Asthma: No Hx Chronic Obstructive Pulmonary Disease (COPD): No Hx Cancer: No Hx Cardiac Disorders: No Hx Congestive Heart Failure: No Hx Hypertension: No Hx Hypercholesterolemia: No Hx Pacemaker: No HX Cerebrovascular Accident: No Hx Seizures: No Hx Dementia: No Hx Diabetes: No Hx Gastrointestinal Disorders: No Hx Liver Disease: No Hx Genitourinary Disorders: No Hx Sexually Transmitted Disorders: No Hx Renal Disease (ESRD): No Hx Thyroid Disease: No Hx Human Immunodeficiency Virus (HIV): No (last 12/21 negative) Hx Hepatitis C: No Hx Depression: Yes (no med) Hx Suicide Attempt: No Hx Bipolar Disorder: No Hx Schizophrenia: No - Patient Surgical History Past Surgical History: No Hx Neurologic Surgery: No Hx Cataract Extraction: No Hx Cardiac Surgery: No Hx Lung Surgery: No Hx Breast Surgery: No Hx Breast Biopsy: No Hx Abdominal Surgery: No Hx Appendectomy: No Hx Cholecystectomy: No Hx Genitourinary Surgery: No Hx Section: No Hx Orthopedic Surgery: Yes (arthroscopic surgery of right elbow) Anesthesia Reaction: No - PPD History Date: 06/16/19 - Smoking Cessation Smoking history: Never smoked Have you smoked in the past 12 months: No Aproximately how many cigarettes per day: 10 Hx Chewing Tobacco Use: No - Substances abused Heroin Substance route: Injection Frequency: Daily Amount used: 10 BAGS Age of first use: 22 Date of last use: 03/08/20 Cocaine Substance route: Injection Frequency: Daily Amount used: 6 BAGS Age of first use: 22 Date of last use: 03/08/20 Admission Physical Exam BHS - Physical General Appearance: Yes: Moderate Distress, Severe Distress, Sweating, Anxious HEENTM: Yes: EOMI, Hearing grossly Normal, Normocephalic, Normal Voice Respiratory: Yes: Chest Non-Tender, Lungs Clear, Normal Breath Sounds, No Respiratory Distress, No Accessory Muscle Use Neck: Yes: No masses,lesions,Nodules, Trachea in good position Cardiology: Yes: Regular Rhythm, Regular Rate, S1, S2 Abdominal: Yes: Non Tender, Soft Musculoskeletal: Yes: Gait Steady Extremities: Yes: Normal Inspection, Normal Range of Motion, Non-Tender Neurological: Yes: Fully Oriented, Alert, Motor Strength 5/5 Integumentary: Yes: Warm, Track Hooks - Diagnostic (1) Nicotine use disorder Current Visit: Yes Status: Chronic (2) Opioid dependence with withdrawal Current Visit: Yes Status: Chronic (3) Cocaine use disorder Current Visit: Yes Status: Chronic Breathalyzer - Breathalyzer Breathalyzer: 0 Urine Drug Screen - Test Device Lot number: [id number] Expiration date: 03/04/21 - Control Is test valid?: Yes - Results Drug screen NEGATIVE: No Urine drug screen results: LAVERN-Cocaine, MTD-Methadone Inpatient Rehab Admission - Rehab Decision to Admit Inpatient rehab admission?: No
[2020-03-08] MEDS ORDERED: cloNIDine HCL 0.1 MG TABLET PO PRN (19:32)
[2020-03-08] MEDS ORDERED: METHADONE HCL 10 MG TABLET (FOR DETOX USE ONLY) PO ONE (19:32)
[2020-03-08] MEDS ORDERED: MAG HYDROX/AL HYDROX/SIMETH 30 ML UNIT-DOSE CUP PO PRN (19:33)
[2020-03-08] MEDS ORDERED: MAGNESIUM CITRATE 300 ML BOTTLE PO PRN (19:33)
[2020-03-08] MEDS ORDERED: ONDANSETRON *ODT* 4 MG TABLET SL PRN (19:33)
[2020-03-08] MEDS ORDERED: MENTHOL/PHENOL 1 EACH UD MM PRN (19:33)
[2020-03-08] MEDS ORDERED: MAGNESIUM HYDROX 2400MG/30ML ORAL SUSPENSION 30 ML CUP PO PRN (19:33)
[2020-03-08] MEDS ORDERED: ACETAMINOPHEN 325 MG TABLET (FP) PO PRN (19:33)
[2020-03-08 19:36] VITALS: BMI 24.3
[2020-03-08] MEDS: METHOCARBAMOL 500 MG TABLET PO PRN (20:29)
[2020-03-08] MEDS: MELATONIN 5 MG TABLETS PO PRN (21:45)
[2020-03-08] MEDS: THIAMINE HCL 100 MG TABLET (FP) PO SCH (21:46)
[2020-03-08] MEDS: hydrOXYzine PAMOATE 25 MG CAPSULE (FP) PO PRN (21:46)
[2020-03-09] MEDS: ACETAMINOPHEN 325 MG TABLET (FP) PO PRN (00:32)
[2020-03-09] MEDS: METHOCARBAMOL 500 MG TABLET PO PRN ×2 (05:40→22:17)
[2020-03-09] MEDS: hydrOXYzine PAMOATE 25 MG CAPSULE (FP) PO PRN (05:41)
[2020-03-09] MEDS ORDERED: METHADONE HCL 5 MG TABLET (FOR DETOX USE ONLY) ONE (08:42)
[2020-03-09] MEDS ORDERED: METHADONE HCL 10 MG TABLET (FOR DETOX USE ONLY) ONE (08:42)
[2020-03-09] MEDS ORDERED: METHADONE (DETOX) 20 MG, METHADONE (DETOX) 5 MG PO ONE (10:00)
[2020-03-09] MEDS: PRENATAL VITAMINS W/ FOLIC ACID TABLET (FP) PO SCH (11:12)
[2020-03-09 12:02] LABS: ALBUMIN 3.4 g/dl (3.4-5.0); BILIRUBIN,TOTAL 0.6 mg/dL (0.2-1); BLOOD UREA NITROGEN 10.5 mg/dL (7-18); CALCIUM 9.1 mg/dL (8.5-10.1); CREATININE 0.7 mg/dL (0.55-1.3); TOT PROT 6.9 g/dl (6.4-8.2)
--- NOTE | 2020-03-09 12:07 | PN ---
S COWS - Scale Resting Pulse: 0= [place] 80 or Below Sweatin= No chills or Flushing Restless Observation: 1= Difficult to Sit Still Pupil Size: 0= Normal to Room Light Bone or Joint Aches: 2= Severe Diffuse Aches Runny Nose/ Eye Tearin= Runny Nose/Eyes GI Upset > 30mins: 2= Nausea/Diarrhea Tremor Observation of Outstretched Hands: 2= Slight Tremor Visible Yawning Observation: 1= 1-2x During Session Anxiety or Irritability: 2=Irritable/Anxious Goose Flesh Skin: 0=Smooth Skin COWS Score: 12 S Progress Note (SOAP) Subjective: alert,irritable,anxious,interrupted sleep,tremor,pain in the body and back Objective: 03/09/20 12:05 Vital Signs Temperature 97.3 F L 03/09/20 05:28 Pulse Rate 59 L 03/09/20 05:28 Respiratory Rate 20 03/09/20 05:28 Blood Pressure 124/68 03/09/20 05:28 O2 Sat by Pulse Oximetry (%) 98 03/09/20 05:28 Laboratory Last Values Sodium 142 mmol/L (136-145) 03/09/20 08:00 Potassium 4.0 mmol/L (3.5-5.1) 03/09/20 08:00 Chloride 108 mmol/L (98-107) H 03/09/20 08:00 Carbon Dioxide 28 mmol/L (21-32) 03/09/20 08:00 Anion Gap 6 MMOL/L (8-16) L 03/09/20 08:00 BUN 10.5 mg/dL (7-18) 03/09/20 08:00 Creatinine 0.7 mg/dL (0.55-1.3) 03/09/20 08:00 Est GFR (CKD-EPI)AfAm 137.78 03/09/20 08:00 Est GFR (CKD-EPI)NonAf 118.88 03/09/20 08:00 Random Glucose 91 mg/dL (74-106) 03/09/20 08:00 Calcium 9.1 mg/dL (8.5-10.1) 03/09/20 08:00 Total Bilirubin 0.6 mg/dL (0.2-1) 03/09/20 08:00 AST 38 U/L (15-37) H 03/09/20 08:00 ALT 58 U/L (13-61) 03/09/20 08:00 Alkaline Phosphatase 61 U/L (45-117) 03/09/20 08:00 Total Protein 6.9 g/dl (6.4-8.2) 03/09/20 08:00 Albumin 3.4 g/dl (3.4-5.0) 03/09/20 08:00 labs pending Assessment: 03/09/20 12:06 withdrawal symptom Plan: continue detox methadone regimen,valium 10 mgs po q 4hrs for 72 hrs
[2020-03-09 12:11] LABS: HEMATOCRIT 38.1 % (35.4-49); HEMOGLOBIN 12.4 GM/dL (11.7-16.9); MCH 27.5 pg (25.7-33.7); MCHC 32.4 g/dl (32.0-35.9); MEAN CELL VOLUME 84.7 fl (80-96); MEAN PLT VOLUME 8.8 fl (7.5-11.1); PLATELET COUNT 213 K/MM3 (134-434); RDW 14.8 % (11.9-15.9); WHITE BLOOD COUNT 4.5 K/mm3 (4.0-10.0)
[2020-03-09] MEDS: THIAMINE HCL 100 MG TABLET (FP) PO SCH (22:15)
[2020-03-09] MEDS: MELATONIN 5 MG TABLETS PO PRN (22:16)
[2020-03-10] MEDS: diazePAM 5 MG TABLET PO PRN ×4 (01:54→22:27)
[2020-03-10] MEDS ORDERED: METHADONE HCL 10 MG TABLET (FOR DETOX USE ONLY) PO ONE (10:00)
[2020-03-10] MEDS: PRENATAL VITAMINS W/ FOLIC ACID TABLET (FP) PO SCH (10:15)
[2020-03-10] MEDS: BISMUTH SUBSALICYLATE 524 MG/30 ML UD PO PRN (10:17)
[2020-03-10] MEDS: NICOTINE POLACRILEX 2 MG GUM BUC PRN (12:37)
--- NOTE | 2020-03-10 13:49 | PN ---
S COWS - Scale Resting Pulse: 0= [place] 80 or Below Sweatin= No chills or Flushing Restless Observation: 1= Difficult to Sit Still Pupil Size: 1= Pupils >than Normal Bone or Joint Aches: 2= Severe Diffuse Aches Runny Nose/ Eye Tearin= Runny Nose/Eyes GI Upset > 30mins: 2= Nausea/Diarrhea Tremor Observation of Outstretched Hands: 2= Slight Tremor Visible Yawning Observation: 1= 1-2x During Session Anxiety or Irritability: 2=Irritable/Anxious Goose Flesh Skin: 0=Smooth Skin COWS Score: 13 [facility] Progress Note (SOAP) Subjective: alert,irritable,anxious,interrupted sleep,pain of the body,back,nausea Objective: 03/10/20 13:44 Vital Signs Temperature 97.1 F L 03/10/20 05:18 Pulse Rate 49 L 03/10/20 05:18 Respiratory Rate 20 03/10/20 05:18 Blood Pressure 128/73 03/10/20 05:18 O2 Sat by Pulse Oximetry (%) 100 03/10/20 05:18 03/10/20 13:44 Laboratory Last Values WBC 4.5 K/mm3 (4.0-10.0) 03/09/20 08:00 RBC 4.50 M/mm3 (4.00-5.60) 03/09/20 08:00 Hgb 12.4 GM/dL (11.7-16.9) 03/09/20 08:00 Hct 38.1 % (35.4-49) 03/09/20 08:00 MCV 84.7 fl (80-96) 03/09/20 08:00 MCH 27.5 pg (25.7-33.7) 03/09/20 08:00 MCHC 32.4 g/dl (32.0-35.9) 03/09/20 08:00 RDW 14.8 % (11.9-15.9) 03/09/20 08:00 Plt Count 213 K/MM3 (134-434) D 03/09/20 08:00 MPV 8.8 fl (7.5-11.1) 03/09/20 08:00 Sodium 142 mmol/L (136-145) 03/09/20 08:00 Potassium 4.0 mmol/L (3.5-5.1) 03/09/20 08:00 Chloride 108 mmol/L (98-107) H 03/09/20 08:00 Carbon Dioxide 28 mmol/L (21-32) 03/09/20 08:00 Anion Gap 6 MMOL/L (8-16) L 03/09/20 08:00 BUN 10.5 mg/dL (7-18) 03/09/20 08:00 Creatinine 0.7 mg/dL (0.55-1.3) 03/09/20 08:00 Est GFR (CKD-EPI)AfAm 137.78 03/09/20 08:00 Est GFR (CKD-EPI)NonAf 118.88 03/09/20 08:00 Random Glucose 91 mg/dL (74-106) 03/09/20 08:00 Calcium 9.1 mg/dL (8.5-10.1) 03/09/20 08:00 Total Bilirubin 0.6 mg/dL (0.2-1) 03/09/20 08:00 AST 38 U/L (15-37) H 03/09/20 08:00 ALT 58 U/L (13-61) 03/09/20 08:00 Alkaline Phosphatase 61 U/L (45-117) 03/09/20 08:00 Total Protein 6.9 g/dl (6.4-8.2) 03/09/20 08:00 Albumin 3.4 g/dl (3.4-5.0) 03/09/20 08:00 Syphilis Serology Reactive (NONREACTIVE) A* 03/09/20 08:00 RPR Titer Reactive 1:2 (NONREACTIVE) H D 03/09/20 08:00 COVID-19 ([facility]) Not detected (Not Detected) 03/08/20 08:00 never been treated for syphilis before allergic to penicillin will start on vibramycin 100 mgs po bid for 28 days fluid will follow up with medical provider for follow up rpr Assessment: 03/10/20 13:47 withdrawal symptom Plan: continue detox methadone regimen,vibramycin 100 mgs po bid for 28 days
[2020-03-10] MEDS: DOXYCYCLINE HYCLATE 100 MG TABLET PO SCH (17:19)
[2020-03-10] MEDS: METHOCARBAMOL 500 MG TABLET PO PRN (22:27)
[2020-03-10] MEDS: THIAMINE HCL 100 MG TABLET (FP) PO SCH (22:27)
[2020-03-10] MEDS: MELATONIN 5 MG TABLETS PO PRN (22:27)
[2020-03-11] MEDS: diazePAM 5 MG TABLET PO PRN ×3 (02:28→22:08)
[2020-03-11] MEDS: METHOCARBAMOL 500 MG TABLET PO PRN ×2 (05:17→17:48)
[2020-03-11] MEDS: IBUPROFEN 400 MG TABLET (FP) PO PRN (05:18)
[2020-03-11] MEDS: BISMUTH SUBSALICYLATE 524 MG/30 ML UD PO PRN (05:21)
[2020-03-11] MEDS ORDERED: METHADONE HCL 5 MG TABLET (FOR DETOX USE ONLY) ONE (09:36)
[2020-03-11] MEDS ORDERED: METHADONE HCL 10 MG TABLET (FOR DETOX USE ONLY) ONE (09:37)
[2020-03-11] MEDS ORDERED: METHADONE (DETOX) 10 MG, METHADONE (DETOX) 5 MG PO ONE (10:00)
[2020-03-11] MEDS: DOXYCYCLINE HYCLATE 100 MG TABLET PO SCH ×2 (11:03→17:48)
[2020-03-11] MEDS: PRENATAL VITAMINS W/ FOLIC ACID TABLET (FP) PO SCH (11:05)
--- NOTE | 2020-03-11 12:13 | PN ---
[facility] COWS - Scale Resting Pulse: 0= [place] 80 or Below Sweatin= No chills or Flushing Restless Observation: 0= Sits Still Pupil Size: 0= Normal to Room Light Bone or Joint Aches: 1= Mild Discomfort Runny Nose/ Eye Tearin= Nasal Congestion GI Upset > 30mins: 1= Stomach Cramp Tremor Observation of Outstretched Hands: 2= Slight Tremor Visible Yawning Observation: 0= None Anxiety or Irritability: 2=Irritable/Anxious Goose Flesh Skin: 0=Smooth Skin COWS Score: 7 [facility] Progress Note (SOAP) Subjective: alert,irritable,anxious,interrupted sleep,pain in the body,back Objective: 03/11/20 12:10 Vital Signs Temperature 97.1 F L 03/11/20 09:00 Pulse Rate 59 L 03/11/20 09:00 Respiratory Rate 16 03/11/20 09:00 Blood Pressure 112/77 03/11/20 09:00 O2 Sat by Pulse Oximetry (%) 100 03/11/20 09:00 Assessment: 03/11/20 12:11 withdrawal symptom Plan: continue detox methadone regimen,valium 10 mgs po q 4hrs for severe withdrawal,on vibramycin 100 mgs po bid for 28 days for positive rpr 1;2
[2020-03-11] MEDS: MELATONIN 5 MG TABLETS PO PRN (22:08)
[2020-03-11] MEDS: THIAMINE HCL 100 MG TABLET (FP) PO SCH (22:08)
[2020-03-12] MEDS ORDERED: METHADONE HCL 10 MG TABLET (FOR DETOX USE ONLY) PO ONE (10:00)
[2020-03-12] MEDS: hydrOXYzine PAMOATE 25 MG CAPSULE (FP) PO PRN ×2 (10:46→22:12)
[2020-03-12] MEDS: PRENATAL VITAMINS W/ FOLIC ACID TABLET (FP) PO SCH (10:46)
[2020-03-12] MEDS: METHOCARBAMOL 500 MG TABLET PO PRN ×2 (10:47→18:08)
[2020-03-12] MEDS: NICOTINE POLACRILEX 2 MG GUM BUC PRN (10:47)
[2020-03-12] MEDS: DOXYCYCLINE HYCLATE 100 MG TABLET PO SCH ×2 (10:47→18:08)
--- NOTE | 2020-03-12 15:05 | PN ---
[facility] COWS - Scale Resting Pulse: 0= [place] 80 or Below Sweatin= No chills or Flushing Restless Observation: 0= Sits Still Pupil Size: 0= Normal to Room Light Bone or Joint Aches: 1= Mild Discomfort Runny Nose/ Eye Tearin= None GI Upset > 30mins: 0= None Tremor Observation of Outstretched Hands: 0= None Yawning Observation: 0= None Anxiety or Irritability: 1=Feels Anxious/Irritable Goose Flesh Skin: 0=Smooth Skin COWS Score: 2 [facility] Progress Note (SOAP) Subjective: Complaints of mild body aches and anxiety. Objective: 03/12/20 15:03 Vital Signs 03/12/20 03/12/20 09:43 13:36 Temperature 97.2 F L 97.1 F L Pulse Rate 68 80 Respiratory 19 19 Rate Blood Pressure 123/72 121/66 O2 Sat by Pulse 96 98 Oximetry (%) Laboratory Last Values WBC 4.5 K/mm3 (4.0-10.0) 03/09/20 08:00 RBC 4.50 M/mm3 (4.00-5.60) 03/09/20 08:00 Hgb 12.4 GM/dL (11.7-16.9) 03/09/20 08:00 Hct 38.1 % (35.4-49) 03/09/20 08:00 MCV 84.7 fl (80-96) 03/09/20 08:00 MCH 27.5 pg (25.7-33.7) 03/09/20 08:00 MCHC 32.4 g/dl (32.0-35.9) 03/09/20 08:00 RDW 14.8 % (11.9-15.9) 03/09/20 08:00 Plt Count 213 K/MM3 (134-434) D 03/09/20 08:00 MPV 8.8 fl (7.5-11.1) 03/09/20 08:00 Sodium 142 mmol/L (136-145) 03/09/20 08:00 Potassium 4.0 mmol/L (3.5-5.1) 03/09/20 08:00 Chloride 108 mmol/L (98-107) H 03/09/20 08:00 Carbon Dioxide 28 mmol/L (21-32) 03/09/20 08:00 Anion Gap 6 MMOL/L (8-16) L 03/09/20 08:00 BUN 10.5 mg/dL (7-18) 03/09/20 08:00 Creatinine 0.7 mg/dL (0.55-1.3) 03/09/20 08:00 Est GFR (CKD-EPI)AfAm 137.78 03/09/20 08:00 Est GFR (CKD-EPI)NonAf 118.88 03/09/20 08:00 Random Glucose 91 mg/dL (74-106) 03/09/20 08:00 Calcium 9.1 mg/dL (8.5-10.1) 03/09/20 08:00 Total Bilirubin 0.6 mg/dL (0.2-1) 03/09/20 08:00 AST 38 U/L (15-37) H 03/09/20 08:00 ALT 58 U/L (13-61) 03/09/20 08:00 Alkaline Phosphatase 61 U/L (45-117) 03/09/20 08:00 Total Protein 6.9 g/dl (6.4-8.2) 03/09/20 08:00 Albumin 3.4 g/dl (3.4-5.0) 03/09/20 08:00 Syphilis Serology Reactive (NONREACTIVE) A* 03/09/20 08:00 RPR Titer Reactive 1:2 (NONREACTIVE) H D 03/09/20 08:00 COVID-19 ([facility]) Not detected (Not Detected) 03/08/20 08:00 Labs noted. Assessment: 03/12/20 15:04 Alert and oriented x3, in no acute respiratory distress. Full ROM, ambulating in hallway without assistance. Skin warm to touch with no lesions noted. Mild withdrawal symptoms. Plan: Continue detox protocol. D/C in AM Prescriptions for doxy x 25 days sent to preferred pharmacy.
[2020-03-12] MEDS: IBUPROFEN 400 MG TABLET (FP) PO PRN (20:12)
[2020-03-12] MEDS: THIAMINE HCL 100 MG TABLET (FP) PO SCH (22:12)
[2020-03-12] MEDS: MELATONIN 5 MG TABLETS PO PRN (22:14)
[2020-03-13] MEDS: METHOCARBAMOL 500 MG TABLET PO PRN (00:47)
[2020-03-13] MEDS: ACETAMINOPHEN 325 MG TABLET (FP) PO PRN (00:47)
[2020-03-13] MEDS ORDERED: METHADONE HCL 5 MG TABLET (FOR DETOX USE ONLY) PO ONE (06:00)
[2020-03-13 10:36] VITALS: BP 120/65; PULSE 83; TEMP 97.2
[2020-03-13] MEDS: DOXYCYCLINE HYCLATE 100 MG TABLET PO SCH (10:50)
[2020-03-13] MEDS: PRENATAL VITAMINS W/ FOLIC ACID TABLET (FP) PO SCH (10:50)
--- NOTE | 2020-03-13 11:20 | DS ---
[facility] Detox Discharge Summary Admission Date: 03/08/20 - History Present History: Opioid Dependence - Physical Exam Results Vital Signs: Vital Signs Temperature 97.2 F L 03/13/20 09:23 Pulse Rate 83 03/13/20 09:23 Respiratory Rate 18 03/13/20 09:23 Blood Pressure 120/65 03/13/20 09:23 O2 Sat by Pulse Oximetry (%) 98 03/13/20 09:23 ROS: DENIES SHAKES, BODY ACHES, SWEATING AND ANXIETY PE ALERT AND ORIENTED X 3 SKIN WARM AND DRY +PERRLA EOMS INTACT BL IN NAD RESTLESS/IRRITABLE AT TIMES A/P: OPIOD DEPENDENCE MEDICALLY STABLE FOR D/C - Treatment Hospital Course: Detox Protocol Followed, Detoxed Safely, Responded well, Discharged Condition Good, Rehab Referral Accepted Patient has Accepted a Rehab Referral to: [facility] - Medication Discharge Medications: Ambulatory Orders Doxycycline Hyclate 100 mg PO BID 25 Days #50 tablet 03/12/20 - AMA Did Patient Leave Against Medical Advice: No
== END 2020-03-13 11:45 | disposition home or self-care (01) | DRG 773 ==
LOC: YASAS 18:40 → Y6N 19:55
PROVIDERS: ADMIT Allergy & Immunology; ATTEND Allergy & Immunology
PROC: HZ2ZZZZ Detoxification Services for Substance Abuse Treatment (ICD-10-PCS; principal; 2020-03-08)
DX: F11.23 Opioid dependence with withdrawal (principal); F14.20 Cocaine dependence, uncomplicated; Z88.0 Allergy status to penicillin
CPT/HCPCS: 36415; 80053; 85027; 86593; 86780; U0003